=== PATIENT | male | born 1950 | race Caucasian/White ===

== ENCOUNTER → 2019-11-10 09:33 | Outpatient (BNVA) | payer OTHER, SELFPAY | PROVIDERS: Family Provider Internal Medicine; PCP Internal Medicine; Referring Provider Internal Medicine; Visit Provider Podiatrist Foot & Ankle Surgery | DX: M25.572 Pain in left ankle and joints of left foot (principal); M25.571 Pain in right ankle and joints of right foot; M79.672 Pain in left foot; M79.671 Pain in right foot; M21.42 Flat foot [pes planus] (acquired), left foot; M21.41 Flat foot [pes planus] (acquired), right foot | CPT/HCPCS: 73600; 73630 ==

== ENCOUNTER → 2020-03-20 10:15 | Outpatient (BNVA) | payer OTHER, SELFPAY | PROVIDERS: Family Provider Internal Medicine; PCP Internal Medicine; Visit Provider Nurse Practitioner Family | DX: R35.0 Frequency of micturition (principal); R39.15 Urgency of urination | CPT/HCPCS: 81003 ==

== ENCOUNTER → 2020-09-21 09:10 | Outpatient (BNVA) | payer OTHER, SELFPAY | PROVIDERS: Family Provider Internal Medicine; PCP Internal Medicine; Visit Provider Urology | DX: R39.15 Urgency of urination (principal); R35.8 Other polyuria | CPT/HCPCS: 81003 ==

== ENCOUNTER → 2022-03-06 08:24 | Outpatient (BNVA) | payer OTHER, SELFPAY | PROVIDERS: Family Provider Internal Medicine; PCP Internal Medicine; Visit Provider Podiatrist Foot & Ankle Surgery | DX: E11.8 Type 2 diabetes mellitus with unspecified complications (principal); M76.821 Posterior tibial tendinitis, right leg; M76.822 Posterior tibial tendinitis, left leg; E11.42 Type 2 diabetes mellitus with diabetic polyneuropathy; M21.41 Flat foot [pes planus] (acquired), right foot; M21.42 Flat foot [pes planus] (acquired), left foot; M25.371 Other instability, right ankle | CPT/HCPCS: 73610; 99214 ==

== ENCOUNTER → 2022-09-18 08:17 | Outpatient (BNVA) | payer OTHER, SELFPAY | PROVIDERS: Family Provider Internal Medicine; PCP Internal Medicine; Visit Provider Podiatrist Foot & Ankle Surgery | DX: E11.8 Type 2 diabetes mellitus with unspecified complications (principal); M76.821 Posterior tibial tendinitis, right leg; M76.822 Posterior tibial tendinitis, left leg; E11.42 Type 2 diabetes mellitus with diabetic polyneuropathy; M19.071 Primary osteoarthritis, right ankle and foot; M21.41 Flat foot [pes planus] (acquired), right foot; M21.42 Flat foot [pes planus] (acquired), left foot; M25.371 Other instability, right ankle; Z79.84 Long term (current) use of oral hypoglycemic drugs | CPT/HCPCS: 99214 ==

== ENCOUNTER 2023-07-01 09:29 | Outpatient (CLI) | payer OTHER, SELFPAY ==
--- NOTE | 2023-07-01 09:45 | US_ITS ---
WS: [id number] ULTRASOUND THYROID TECHNIQUE: Ultrasound of the thyroid. CLINICAL INFORMATION: LOW TSH COMPARISON: None. FINDINGS: Thyroid: Right and left thyroid lobes are normal in size and echotexture. No thyroid nodules are pres ent. Right thyroid lobe: 3.5 cm x 1.9 cm x 1.9 cm Left thyroid lobe: 4.7 cm x 1.8 cm x 1.7 cm. Isthmus: 0.4 mm. Cervical lymphadenopathy: None. IMPRESSION: Normal thyroid ultrasound examination.
== END 2023-07-01 09:30 | disposition home or self-care (01) ==
LOC: RAD 09:30
PROVIDERS: PCP Family Medicine; Visit Provider Family Medicine
DX: R94.6 Abnormal results of thyroid function studies (principal)
CPT/HCPCS: 76536

== ENCOUNTER 2023-08-06 11:26 | Outpatient (CLI) | payer OTHER, SELFPAY ==
--- NOTE | 2023-08-06 11:39 | XR_ITS ---
WS: [id number] Right ankle, 3 views, 08/06/2023 Clinical Data: R ANKLE PAIN Comparison: Right ankle, 03/06/2022 Findings: No fractures or dislocations are seen. The ankle mortise is normal. The talus and calcaneus are unrem arkable. No soft tissue swelling over the medial or lateral malleolus is seen. There are chronic anterior subcutaneous calcifications unchanged. XR/XR ankle RT min 3V* [id number] Impression: Negative right ankle.
== END 2023-08-06 11:27 | disposition home or self-care (01) ==
LOC: RAD 11:32
PROVIDERS: PCP Family Medicine; Visit Provider Nurse Practitioner Family
DX: M25.571 Pain in right ankle and joints of right foot (principal); L94.2 Calcinosis cutis
CPT/HCPCS: 73610

== ENCOUNTER 2023-08-27 12:46 | Observation (INO) | payer OTHER, SELFPAY ==
[2023-08-27] VITALS (10 sets, daily range): BP systolic 96–135; BP diastolic 64–87; PULSE 56–76; RESP 16–18; TEMP 36.6–36.8; O2SAT 81–99
--- NOTE | 2023-08-27 12:51 | W.ED.GENADLT ---
HPI - General Adult General: Chief complaint: Dizziness Stated complaint: low sugar Time Seen by Provider: 08/27/23 12:46 Source: patient and EMS Mode of arrival: EMS Limitations: no limitations History of Present Illness: 73-year-old male with a history of diabetes on metformin he states that he had not eaten this morning late for his appointment is feeling slightly weeks he checked his glucose and was in the 50s. Glucose here is 41 he is awake alert talking states this has happened before when he has not eaten. Denies any vomiting or diarrhea Associated symptoms: Deny chest pain, dyspnea, headache(s), nausea, rash or vomiting Review of Systems Const: Reports: fatigue; Denies: fever(s), chills, body aches or change in appetite ENMT: Denies: throat pain or dental pain Card: Denies: chest pain Resp: Denies: dyspnea GI: Denies: abdominal pain, nausea, vomiting or diarrhea Musc: Denies: neck pain or back pain Skin/Breast: Denies: rash Neuro: Denies: headache(s) PFSH ED PFSH: Medical History Urgency of urination Diabetes Neuropathy Family History Mother , at age 92 No problems noted. Social History Smoking and tobacco/nicotine status: former use of tobacco/nicotine Alcohol intake: never Substance/Drug Use: never Marital status: Current occupational status: retired Physical Exam Const: COMMON NORMALS: no acute distress, patient oriented x3 and healthy appearing HENMT: COMMON NORMALS: normocephalic and atraumatic HEAD & SCALP: normocephalic and atraumatic Eye: COMMON NORMALS: Equal, round and reactive pupils present and EOMs intact bilaterally PUPIL: Yes Equal, round and reactive pupils present Neck/C-Spine: COMMON NORMALS: full ROM and supple Chest: COMMONS NORMALS: normal inspection of the chest Resp: COMMON NORMALS: normal respiratory effort, No retractions, No use of accessory muscles and clear to auscultation bilaterally AUSCULTATION: clear to auscultation bilaterally Cardio: COMMON NORMALS: regular rate, regular rhythm and No murmurs present (Cardio) RATE: regular rate RHYTHM: regular rhythm Extremity: COMMON NORMALS: normal to inspection and full ROM Neuro: COMMON NORMALS: patient oriented x3, moves all extremities and no focal motor deficits Psych: COMMON NORMALS: mental status grossly normal, Normal thought process present and cooperative THOUGHT PROCESS: Normal thought process present Skin: COMMON NORMALS: no rashes or lesions noted and no wounds GENERAL SKIN EXAM: no rashes or lesions noted Course Vital Signs: Vital signs: Vital Signs Temperature 98 F 08/27/23 12:52 Pulse Rate 57 L 08/27/23 14:59 Respiratory Rate 16 08/27/23 14:59 Blood Pressure 113/71 08/27/23 14:59 Pulse Oximetry 98 08/27/23 14:59 Oxygen Delivery Me thod Room Air 08/27/23 14:59 MDM - General Adult Medical Decision Making Patient presents here with hypoglycemia he has been given D10 multiple boluses along with he has eaten here he continues to trend down his last glucose was 60 I am start him on a D10 drip now spoke to the hospitalist will admit the ICU. Medical Records I reviewed the patient's medical records. Lab Data I reviewed the patient's lab results. 08/27/23 12:40 08/27/23 12:40 Laboratory Results WBC 5.97 10^3/uL (3.29-11.43) 08/27/23 12:40 RBC 3.97 10^6/uL (3.85-5.65) 08/27/23 12:40 Hgb 10.70 g/dL (11.27-16.99) L 08/27/23 12:40 Hct 33.6 % (37-53) L 08/27/23 12:40 MCV 84.6 fl (82-101) 08/27/23 12:40 MCH 27.0 pg (27-33) 08/27/23 12:40 MCHC 31.8 g/dL (30-55) 08/27/23 12:40 RDW 17.0 % (12.1-15.1) H 08/27/23 12:40 Plt Count 308 10^3/cmm (157-399) 08/27/23 12:40 MPV 8.6 fL (7.4-10.4) 08/27/23 12:40 Neut % (Auto) 42.3 % 08/27/23 12:40 Lymph % (Auto) 44.2 % 08/27/23 12:40 Nicholas % (Auto) 9.4 % 08/27/23 12:40 Eos % (Auto) 3.2 % 08/27/23 12:40 Baso % (Auto) 0.7 % 08/27/23 12:40 Neut # (Auto) 2.53 10^3/uL (1.8-7.7) 08/27/23 12:40 Lymph # (Auto) 2.6 10^3/uL (0.8-4.8) 08/27/23 12:40 Nicholas # (Auto) 0.6 10^3/uL (0.2-0.9) 08/27/23 12:40 Eos # (Auto) 0.2 10^3/uL (0.0-0.8) 08/27/23 12:40 Baso # (Auto) 0.0 10^3/uL (0.0-0.1) 08/27/23 12:40 Nucleated RBC % (auto) 0 % 08/27/23 12:40 Nucleated RBCs # 0.0 /100WBC 08/27/23 12:40 Sodium 136 mmol/L (136-145) 08/27/23 12:40 Potassium 5.6 mmol/L (3.5-5.1) H 08/27/23 12:40 Chloride 103 mmol/L (98-107) 08/27/23 12:40 Carbon Dioxide 22 mmol/L (22-29) 08/27/23 12:40 Anion Gap 16.6 (5-19) 08/27/23 12:40 BUN 27 mg/dL (8-23) H 08/27/23 12:40 Creatinine 1.5 mg/dL (0.7-1.2) H 08/27/23 12:40 GFR Calculation Not Reportable 08/27/23 12:40 Glucose 34 mg/dL (65-115) L* 08/27/23 12:40 POC Glucose 60 mg/dL (70-110) L 08/27/23 15:51 Calculated Osmolality 284 mOsm/kg (285-295) L 08/27/23 12:40 Calcium 10.6 mg/dL (8.5-10.5) H 08/27/23 12:40 Total Bilirubin 0.2 mg/dL (0.15-1.2) 08/27/23 12:40 AST 18 U/L (0-40) 08/27/23 12:40 ALT 11 U/L (0-41) 08/27/23 12:40 Alkaline Phosphatase 61 U/L (40-130) 08/27/23 12:40 Total Protein 7.3 g/dL (6.6-8.7) 08/27/23 12:40 Albumin 4.6 g/dL (3.5-5.2) 08/27/23 12:40 Globulin 2.7 g/dL (1.3-4.6) 08/27/23 12:40 No radiology studies performed this visit Discharge Plan Discharge Patient Disposition: Admitted As Inpatient Clinical Impression: Hypoglycemia Condition: Stable Coding Level of Care Code ED Information Technology Advisor for Constanza Lucia
[2023-08-27 12:53] LABS: Glucose Point of Care 41 mg/dL (70-110)
[2023-08-27] MEDS: dextrose 10% 250 ML 1000 ML IV (12:59)
--- NOTE | 2023-08-27 13:02 | PC.PHAR ---
Addendum entered by Rosa Soliman 08/27/23 14:11: [facility]:10PM Original Note: [facility] 08/27/23 1PM
[2023-08-27 13:05] LABS: Basophils % 0.7 %; Eosinophils # 0.2 10^3/uL (0.0-0.8); Eosinophils % 3.2 %; Hematocrit 33.6 % (37-53); Lymphocytes # 2.6 10^3/uL (0.8-4.8); Lymphocytes % 44.2 %; Mean Corpuscular HGB Conc 31.8 g/dL (30-55); Mean Corpuscular Volume 84.6 fl (82-101); Mean Platelet Volume 8.6 fL (7.4-10.4); Monocytes # 0.6 10^3/uL (0.2-0.9); Monocytes % 9.4 %; Neutrophils # 2.53 10^3/uL (1.8-7.7); Neutrophils % 42.3 %; Nucleated Red Blood Cells % 0 %; Platelet Count 308 10^3/cmm (157-399); Red Blood Count 3.97 10^6/uL (3.85-5.65); White Blood Count 5.97 10^3/uL (3.29-11.43)
[2023-08-27 13:17] LABS: Alanine Aminotransferase 11 U/L (0-41); Albumin Level 4.6 g/dL (3.5-5.2); Alkaline Phosphatase 61 U/L (40-130); Anion Gap 16.6 (5-19); Aspartate Amino Transferase 18 U/L (0-40); Blood Urea Nitrogen 27 mg/dL (8-23); Calcium 10.6 mg/dL (8.5-10.5); Carbon Dioxide 22 mmol/L (22-29); Chloride 103 mmol/L (98-107); Creatinine Clr Calc Pharmacy 40.2492; Globulin 2.7 g/dL (1.3-4.6); Osmolality Calculated 284 mOsm/kg (285-295); Potassium 5.6 mmol/L (3.5-5.1); Sodium 136 mmol/L (136-145); Total Bilirubin 0.2 mg/dL (0.15-1.2); Total Protein 7.3 g/dL (6.6-8.7)
[2023-08-27 13:20] LABS: Glucose 34 mg/dL (65-115)
[2023-08-27 13:36] LABS: Glucose Point of Care 182 mg/dL (70-110)
[2023-08-27 13:57] LABS: Glucose Point of Care 104 mg/dL (70-110)
[2023-08-27] MEDS: dextrose 10% 250 ML 999 ML IV (14:25)
[2023-08-27 14:27] LABS: Glucose Point of Care 75 mg/dL (70-110)
[2023-08-27 15:07] LABS: Glucose Point of Care 135 mg/dL (70-110)
[2023-08-27 15:54] LABS: Glucose Point of Care 60 mg/dL (70-110)
[2023-08-27] MEDS: dextrose 10% 1,000 ML 75 ML IV (16:00)
--- NOTE | 2023-08-27 16:32 | P.HP_ITS ---
Providers/Chief Complaint 2 Primary Care Provider: Dea Schuler MD Chief Complaint: low sugar History of Present Illness Mehdi Muir is a 73 year old male with past medical history of type 2 diabetes on metformin 1000 mg twice a day, neuropathy, GERD was brought in by EMS for blood sugar of 30. As per the patient he and his were planning to go to the restaurant to eat but while in the parking lot he started feeling really weak, unable to get up, unable to hold things and was feeling funny . He went to [facility] from where he was transported by EMS to [facility]. He denies any history of fever, cold, cough, chest pain/discomfort, nausea, vomiting, urinary or bladder complaints. He has a history of similar complaint 2 weeks ago with similar symptoms, where he was given IV dextrose by the EMS and he recovered. He did not see his PCP in the last 2 weeks. He has been on self diet for the last few months and has lost 50 pounds. He eats only twice a day, first meal of the day is around 1-2 PM. This morning, he was in his usual health, took metformin and left for the restaurant at noon time. He endorses he has been taking metformin for the last 4 years and never had this complaints before. On arrival in ER he was found to have blood sugar of 30, he received 1 D10 which improved sugars but again an hour later repeat blood sugars were 60. He received second D10 and sugars improved. He also had to ham sandwiches and 2 containers of juice. Serum creatinine is 1.5 Potassium 5.6 Review of Systems 2 General: Reports: 10 or more systems reviewed and unremarkable except in HPI and below Medications/Allergies Home Medications Medication Instructions Recorded Confirmed Last Taken Type cyclobenzaprine 10 mg tablet 10 mg PO TID 11/10/19 09/18/22 Unknown History meloxicam 7.5 mg tablet 7.5 mg PO DAILY 11/10/19 09/18/22 Unknown History metformin 1,000 mg tablet 1,000 mg PO BID 11/10/19 09/18/22 Unknown History omeprazole 10 mg capsule,delayed 10 mg PO DAILY 11/10/19 09/18/22 Unknown History release pregabalin 25 mg capsule 25 mg PO DAILY 11/10/19 09/18/22 Unknown History Articulating Spectrum AFO #1 ea 03/06/22 08/27/23 Unknown Rx Articulating Spectrum AFO to the #1 ea 09/18/22 08/27/23 Unknown Rx left Allergies Allergy/AdvReac Type Severity Reaction Status Date / Time No Known Allergies Allergy Verified 08/27/23 12:57 PFSH Acute 2 PFSH: Medical History Urgency of urination Diabetes Neuropathy Family History Mother , at age 92 No problems noted. Social History Smoking and tobacco/nicotine status: former use of tobacco/nicotine Alcohol intake: never Substance/Drug Use: never Marital status: Current occupational status: retired Vitals/I&O/Wt Last Vital Signs Temp 98 F 08/27/23 12:52 Pulse 57 L 08/27/23 14:59 Resp 16 08/27/23 14:59 BP 113/71 08/27/23 14:59 Pulse Ox 98 08/27/23 14:59 O2 Del Method Room Air 08/27/23 14:59 08/27/23 08/27/23 08/27/23 06:59 14:59 22:59 Intake Total 250 / 250 250 / 500 Balance 250 / 250 250 / 500 Weight last 48 hrs Weight 68.039 kg Physical Exam 2 Narrative: He is alert awake oriented x 3, not in acute distress Chest clear to auscultation bilaterally Cardiovascular normal heart sounds no murmurs Abdomen soft nontender nondistended normal bowel sounds Extremities no edema noted bilateral lower extremities Neurological no motor or sensory deficits noted. Data 08/27/23 12:40 08/27/23 12:40 A&P Assessment and plan (1) Hypoglycemia: (2) Acute renal failure: (3) Hyperkalemia: Plan 73 year old male with past medical history of type 2 diabetes on metformin 1000 mg twice a day, neuropathy, GERD was brought in by EMS for blood sugar of 30. As per the patient he and his were planning to go to the restaurant to eat but while in the parking lot he started feeling really weak, unable to get up, unable to hold things and was feeling funny and was found to have blood sugar of 30 and 60 on 2 occasions, nonresponsive to D10. Also found to have serum creatinine 1.5 and potassium 5.6 Hypoglycemia-etiology unknown in combination with dehydration, does not seem to be medication induced Admit to ICU for observation Will continue D10 at 75 cc per hour Monitor fingersticks every 2 hours Check chest x-ray,UA, HbA1c, TSH, serum insulin levels, C-peptide Regular diet neurochecks and seizure precautions. Hyperkalemia-will check twelve-lead EKG He does not complain of any ongoing chest pain/discomfort DVT prophylaxis with subcutaneous Lovenox GI prophylaxis continue home dose of omeprazole. He is full code for now Attestations 2 Medical Necessity Statement*: He needs hospitalization not more than 2 midnights for management of persistent hypoglycemia, nonresponsive to D10. Time Spent in Patient Care: 40 minutes Coding Level of Care Code Acute Code for Chg Fwd Diagnoses Hypoglycemia E16.2 Acute renal failure N17.9 Hyperkalemia E87.5 Time Spent (min) 40
--- NOTE | 2023-08-27 16:52 | XRR_ITS ---
PROCEDURE INFORMATION: Exam: XR Chest Exam date and time: 08/27/2023 5:06 PM Age: 73 years old Clinical indication: Shortness of breath; Additional info: R/O infection TECHNIQUE: Imaging protocol: Radiologic exam of the chest. Views: 1 view. COMPARISON: No relevant prior studies available. FINDINGS: Lungs: Unremarkable. No consolidation or mass. Pleural spaces: Unremarkable. No pleural effusion. No pneumothorax. Heart/Mediastinum: Unremarkable. No cardiomegaly. Bones/joints: Unremarkable. XR/XR chest 1V portable [id number] IMPRESSION: No acute findings.
--- NOTE | 2023-08-27 16:59 | ECG_ITS ---
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 Measurements Intervals [place] Rate: 54 P: 91 WV: 195 QRS: -62 QRSD: 96 T: 36 QT: 372 QTc: 353 Interpretive Statements SINUS BRADYCARDIA POSSIBLE RIGHT VENTRICULAR CONDUCTION DELAY [RSR (QR) IN V1/V2] LEFT ANTERIOR FASCICULAR BLOCK [QRS AXIS <= -45, QR IN I, RS IN II] No previous ECG available for comparison Electronically Signed On 08-28-2023 0:04:11 CDT by Tremayne Awan M.D. [id number]
[2023-08-27 17:13] LABS: Glucose Point of Care 71 mg/dL (70-110)
[2023-08-27] MEDS: enoxaparin 40 mg/0.4 mL Syringe SUBCUT (17:51)
[2023-08-27 20:30] LABS: Glucose Point of Care 64 mg/dL (70-110)
[2023-08-27 21:47] LABS: Add Urine Microscopic? NO; Charge for UA Resulting for Rev
[2023-08-27 21:55] LABS: Bilirubin Urine Neg (Negative); Blood Urine Neg (Negative); Glucose Urine UA Norm (Normal); Ketones Urine Negative (Negative); Leukocyte Esterase Urine Negative (Negative); Nitrate Urine Negative (Negative); Protein Urine Neg (Negative); Urine Appearance Clear (CLEAR); Urine Color Yellow (Yellow); Urobilinogen Urine Neg (Negative); pH Urine 7 (5-7)
[2023-08-27 22:02] LABS: Glucose Point of Care 71 mg/dL (70-110)
[2023-08-27 23:56] LABS: Glucose Point of Care 82 mg/dL (70-110)
[2023-08-28] VITALS (15 sets, daily range): BP systolic 98–124; BP diastolic 50–79; PULSE 52–95; RESP 12–25; TEMP 36.6; O2SAT 95–98
[2023-08-28 00:08] LABS: Glucose Point of Care 65 mg/dL (70-110)
[2023-08-28 01:51] LABS: Glucose Point of Care 106 mg/dL (70-110)
[2023-08-28 03:50] LABS: Glucose Point of Care 139 mg/dL (70-110)
[2023-08-28] MEDS: dextrose 10% 1,000 ML 75 ML IV (05:07)
[2023-08-28 05:40] LABS: Basophils # 0.1 10^3/uL (0.0-0.1); Basophils % 1.3 %; Eosinophils # 0.3 10^3/uL (0.0-0.8); Eosinophils % 5.4 %; Hematocrit 38.3 % (37-53); Lymphocytes # 3.2 10^3/uL (0.8-4.8); Mean Corpuscular HGB Conc 29.5 g/dL (30-55); Mean Corpuscular Hemoglobin 26.5 pg (27-33); Mean Corpuscular Volume 89.9 fl (82-101); Mean Platelet Volume 8.7 fL (7.4-10.4); Monocytes # 0.5 10^3/uL (0.2-0.9); Monocytes % 8.6 %; Neutrophils # 1.53 10^3/uL (1.8-7.7); Neutrophils % 27.5 %; Nucleated Red Blood Cells % 0 %; Platelet Count 296 10^3/cmm (157-399); Red Blood Count 4.26 10^6/uL (3.85-5.65); Red Cell Distribution Width 17.4 % (12.1-15.1); White Blood Count 5.56 10^3/uL (3.29-11.43)
[2023-08-28 05:49] LABS: Estmated Average Glucose 94; Hemoglobin A1C 4.9 % (4.0-6.0)
[2023-08-28 05:56] LABS: Glucose Point of Care 144 mg/dL (70-110)
[2023-08-28 06:12] LABS: Anion Gap 15.6 (5-19); Blood Urea Nitrogen 21 mg/dL (8-23); Calcium 10.3 mg/dL (8.5-10.5); Carbon Dioxide 24 mmol/L (22-29); Chloride 103 mmol/L (98-107); Glucose 102 mg/dL (65-115); Osmolality Calculated 287 mOsm/kg (285-295); Potassium 5.6 mmol/L (3.5-5.1); Sodium 137 mmol/L (136-145); Thyroid Stimulating Hormone 1.19 uIU/mL (0.27-4.20)
[2023-08-28 07:47] LABS: Glucose Point of Care 160 mg/dL (70-110)
[2023-08-28] MEDS: octreotide 100 mcg/mL SDV 75 MCG SUBCUT (09:09)
--- NOTE | 2023-08-28 09:27 | PC.NURSE ---
up in room doctor here aware of status breakfast served at this time ... no c/o pain noted
[2023-08-28 09:50] LABS: Glucose Point of Care 181 mg/dL (70-110)
[2023-08-28 11:58] LABS: Glucose Point of Care 178 mg/dL (70-110)
--- NOTE | 2023-08-28 12:19 | PM.DCS ---
Discharge Providers Date of Admission: 08/27/23 18:32 Date of Discharge: August 28, 2023 Attending Provider at Admission: Shelley Borja MD Attending Provider at Discharge: Catrachito Fuchs MD Primary Care Provider: Dea Schuler MD Diagnoses at Discharge Discharge Diagnosis (1) Hypoglycemia: Status: Acute (2) Acute renal failure: Status: Acute (3) Hyperkalemia: Status: Acute Reason for Visit Reason for Visit: low sugar Hospital Course Hospital Course Mehdi Muir is a 73 year old male with past medical history of type 2 diabetes on metformin 1000 mg twice a day, neuropathy, GERD was brought in by EMS for blood sugar of 30. As per the patient he and his were planning to go to the restaurant to eat but while in the parking lot he started feeling really weak, unable to get up, unable to hold things and was feeling funny . He went to [facility] from where he was transported by EMS to [facility]. He denies any history of fever, cold, cough, chest pain/discomfort, nausea, vomiting, urinary or bladder complaints. He has a history of similar complaint 2 weeks ago with similar symptoms, where he was given IV dextrose by the EMS and he recovered. He did not see his PCP in the last 2 weeks. He has been on self diet for the last few months and has lost 50 pounds. He eats only twice a day, first meal of the day is around 1-2 PM. This morning, he was in his usual health, took metformin and left for the restaurant at noon time. He endorses he has been taking metformin for the last 4 years and never had this complaints before. On arrival in ER he was found to have blood sugar of 30, he received 1 D10 which improved sugars but again an hour later repeat blood sugars were 60. He received second D10 and sugars improved. He also had to ham sandwiches and 2 containers of juice. Serum creatinine is 1.5 Potassium 5.6 Patient presented to [facility] due to hypoglycemia, likely due to the effect of sulfonylurea, he admits taking glipizide at home, initially was managed with D10 however continued to have hypoglycemia was given 1 dose of octreotide, blood sugars improved, weaned off D10 drip, blood sugars monitored, alert oriented x 3, following all commands, no recurrent hypoglycemic episodes, during his hospitalization. On discharge he should discontinue glipizide, as his hemoglobin A1c is 4.9, in terms of metformin I decreased his dose of 500 mg daily, for its cardiovascular benefit. I advised him that if he continues to have episodes of hypoglycemia he should discontinue metformin completely. In terms of his diet, I discussed with him about having a more well-balanced diet, havING small multiple meals throughout the day, increasing the protein in his diet, he voiced understanding, all questions answered. Patient was advised if he has any recurrent hypoglycemic episodes to come to the emergency room. Physical Exam Const: COMMON NORMALS: no acute distress and patient oriented x3 Resp: COMMON NORMALS: normal respiratory effort, No retractions, No use of accessory muscles and clear to auscultation bilaterally AUSCULTATION: clear to auscultation bilaterally Cardio: COMMON NORMALS: regular rate, regular rhythm, S1 normal heart sound present and S2 normal heart sound present RATE: regular rate RHYTHM: regular rhythm HEART SOUNDS: S1 normal heart sound present and S2 normal heart sound present GI: COMMON NORMALS: Normal to inspection, nondistended, normoactive bowel sounds present and non-tender Extremity: COMMON NORMALS: no pedal edema Neuro: COMMON NORMALS: patient oriented x3 Psych: COMMON NORMALS: mental status grossly normal Discharge Data Studies Completed and Pending Completed Studies During Hospitalization Category Date Time Status XR chest 1V portable [id number] Stat Exams 08/27/23 16:52 Completed Pending at discharge Category Date Time Status C-Peptide Stat Lab 08/28/23 04:13 Received Insulin ( Reference Lab Test) Routine Lab 08/28/23 04:13 Received Radiology Impressions Chest X-Ray 08/27/23 16:52 IMPRESSION: No acute findings. Laboratory Results WBC 5.56 10^3/uL (3.29-11.43) 08/28/23 04:13 RBC 4.26 10^6/uL (3.85-5.65) 08/28/23 04:13 Hgb 11.30 g/dL (11.27-16.99) 08/28/23 04:13 Hct 38.3 % (37-53) 08/28/23 04:13 MCV 89.9 fl (82-101) D 08/28/23 04:13 MCH 26.5 pg (27-33) L 08/28/23 04:13 MCHC 29.5 g/dL (30-55) L D 08/28/23 04:13 RDW 17.4 % (12.1-15.1) H 08/28/23 04:13 Plt Count 296 10^3/cmm (157-399) 08/28/23 04:13 MPV 8.7 fL (7.4-10.4) 08/28/23 04:13 Neut % (Auto) 27.5 % 08/28/23 04:13 Lymph % (Auto) 57.0 % 08/28/23 04:13 Bryan % (Auto) 8.6 % 08/28/23 04:13 Eos % (Auto) 5.4 % 08/28/23 04:13 Baso % (Auto) 1.3 % 08/28/23 04:13 Neut # (Auto) 1.53 10^3/uL (1.8-7.7) L 08/28/23 04:13 Lymph # (Auto) 3.2 10^3/uL (0.8-4.8) 08/28/23 04:13 Bryan # (Auto) 0.5 10^3/uL (0.2-0.9) 08/28/23 04:13 Eos # (Auto) 0.3 10^3/uL (0.0-0.8) 08/28/23 04:13 Baso # (Auto) 0.1 10^3/uL (0.0-0.1) 08/28/23 04:13 Nucleated RBC % (auto) 0 % 08/28/23 04:13 Nucleated RBCs # 0.0 /100WBC 08/28/23 04:13 Sodium 137 mmol/L (136-145) 08/28/23 04:13 Potassium 5.6 mmol/L (3.5-5.1) H 08/28/23 04:13 Chloride 103 mmol/L (98-107) 08/28/23 04:13 Carbon Dioxide 24 mmol/L (22-29) 08/28/23 04:13 Anion Gap 15.6 (5-19) 08/28/23 04:13 BUN 21 mg/dL (8-23) 08/28/23 04:13 Creatinine 1.2 mg/dL (0.7-1.2) 08/28/23 04:13 GFR Calculation Not Reportable 08/28/23 04:13 Glucose 102 mg/dL (65-115) 08/28/23 04:13 POC Glucose 178 mg/dL (70-110) H 08/28/23 11:54 Estimat Average Glucose 94 08/28/23 04:13 Hemoglobin A1c 4.9 % (4.0-6.0) 08/28/23 04:13 Calculated Osmolality 287 mOsm/kg (285-295) 08/28/23 04:13 Calcium 10.3 mg/dL (8.5-10.5) 08/28/23 04:13 Total Bilirubin 0.2 mg/dL (0.15-1.2) 08/27/23 12:40 AST 18 U/L (0-40) 08/27/23 12:40 ALT 11 U/L (0-41) 08/27/23 12:40 Alkaline Phosphatase 61 U/L (40-130) 08/27/23 12:40 Total Protein 7.3 g/dL (6.6-8.7) 08/27/23 12:40 Albumin 4.6 g/dL (3.5-5.2) 08/27/23 12:40 Globulin 2.7 g/dL (1.3-4.6) 08/27/23 12:40 TSH 1.19 uIU/mL (0.27-4.20) 08/28/23 04:13 Urine Color Yellow (Yellow) 08/27/23 21:35 Urine Appearance Clear (CLEAR) 08/27/23 21:35 Urine pH 7 (5-7) 08/27/23 21:35 Ur Specific [place] 1.010 (1.005-1.030) 08/27/23 21:35 Urine Protein Neg (Negative) 08/27/23 21:35 Urine Glucose (UA) Norm (Normal) 08/27/23 21:35 Urine Ketones Negative (Negative) 08/27/23 21:35 Urine Blood Neg (Negative) 08/27/23 21:35 Urine Nitrate Negative (Negative) 08/27/23 21:35 Urine Bilirubin Neg (Negative) 08/27/23 21:35 Urine Urobilinogen Neg mg/dL (Negative) 08/27/23 21:35 Ur Leukocyte Esterase Negative (Negative) 08/27/23 21:35 Vitals Last Vital Signs Temp 98 F 08/28/23 08:00 Pulse 55 L 08/28/23 08:00 Resp 15 08/28/23 08:00 BP 104/64 08/28/23 08:00 Pulse Ox 95 08/28/23 08:00 O2 Del Method Room Air 08/27/23 20:11 Discharge Plan Discharge Patient Disposition: Home Condition: Stable Prescriptions: Continued omeprazole 10 mg capsule,delayed release(DR/EC) 10 mg PO DAILY pregabalin 25 mg capsule 25 mg PO DAILY meloxicam 7.5 mg tablet 7.5 mg PO DAILY (DME) Articulating Spectrum AFO See Rx Instructions .Route .MEDSUPPLY Qty: 1 0RF Rx Instructions: As directed by [facility]- HELENE PATIENT (DME) Articulating Spectrum AFO to the left See Rx Instructions .Route .MEDSUPPLY Qty: 1 0RF Rx Instructions: As directed by POP[facility]Grace NARAYAN PATIENT Changed metformin 1,000 mg tablet 500 mg PO DAILY 30 Days Qty: 30 0RF Discharge Orders: Discharge Order (Routine); Ordered 08/28/23 Ordered By: Catrachito Fuchs Referrals: Dea Schuler MD [Primary Care Provider] - Discharge Diet: Diabetic Discharge Activity: Resume usual activity Patient Instructions: Opioid Safety, Pain Management Activity Restrictions/Additional Instructions: -Please stop taking glipizide ? Please decrease metformin to 500 mg once daily, if you continue to have low blood sugars, hypoglycemic episodes stop taking metformin Discharge Attestations Time Spent in Discharge Care*: greater than 30 min Quality Metrics Clinical Quality Measures [ No reported AMI, CVA or VTE this stay] Coding Level of Care Code 29714 Total time (in minutes) for Discharge: 45 Diagnoses Hypoglycemia E16.2 Acute renal failure N17.9 Hyperkalemia E87.5
[2023-08-28 17:32] LABS: Glucose Point of Care 224 mg/dL (70-110)
[2023-08-29 09:10] LABS: Insulin ( Reference Lab Test) 8.5 uIU/mL
== END 2023-08-28 14:00 | disposition home or self-care (01) ==
LOC: ER 17:37 → ICU 19:41 → ER IP 19:43
PROVIDERS: Admitting Provider Internal Medicine; Emergency Provider Emergency Medicine; PCP Family Medicine; Visit Provider Family Medicine
DX: E11.649 Type 2 diabetes mellitus with hypoglycemia without coma (principal); N17.9 Acute kidney failure, unspecified; E87.5 Hyperkalemia; Z79.84 Long term (current) use of oral hypoglycemic drugs; E11.40 Type 2 diabetes mellitus with diabetic neuropathy, unspecified; Z87.891 Personal history of nicotine dependence; E86.0 Dehydration
CPT/HCPCS: 36415; 36416; 71045; 80048; 80053; 81003; 82962; 83036; 83525; 84443; 84681; 85025; 93005; 96360; 96361; 96372; 99285; G0378; J1650; J2354; J7799

== ENCOUNTER → 2023-09-29 10:33 | Outpatient (BNVA) | payer OTHER, SELFPAY | PROVIDERS: PCP Family Medicine; Visit Provider Podiatrist Foot & Ankle Surgery | DX: M76.821 Posterior tibial tendinitis, right leg (principal); M76.822 Posterior tibial tendinitis, left leg; E11.42 Type 2 diabetes mellitus with diabetic polyneuropathy; M21.41 Flat foot [pes planus] (acquired), right foot; M21.42 Flat foot [pes planus] (acquired), left foot; M25.371 Other instability, right ankle; M19.071 Primary osteoarthritis, right ankle and foot; M19.072 Primary osteoarthritis, left ankle and foot; Z79.84 Long term (current) use of oral hypoglycemic drugs | CPT/HCPCS: 99213 ==

== ENCOUNTER → 2023-10-16 09:50 | Outpatient (BNVA) | payer OTHER, SELFPAY | PROVIDERS: PCP Family Medicine; Visit Provider Psychiatry & Neurology Neurology | DX: R20.0 Anesthesia of skin (principal); R20.2 Paresthesia of skin; M79.645 Pain in left finger(s); M79.644 Pain in right finger(s); G56.03 Carpal tunnel syndrome, bilateral upper limbs | CPT/HCPCS: 95861; 95870; 95885; 95911; 95913 ==

== ENCOUNTER 2024-06-02 07:33 | Outpatient (CLI) | payer OTHER, SELFPAY ==
--- NOTE | 2024-06-02 07:40 | MR_ITS ---
WS: [id number] MRI LUMBAR SPINE NONCONTRAST TECHNIQUE: Sagittal T1, T2 and STIR imaging. Axial T1 and T2 imaging. CLINICAL INFORMATION: CHRONIC PAIN SYNDROME COMPARISON: None. FINDINGS: Note the axial imaging best registers with the sagittal STIR imaging. Mild lumbar curve. No acute compression. Slight anterolisthesis L3 on L4 and L4 on L5. Slight retrolisthesis L1 on L2. T12-L1: Tiny LEFT subarticular protrusion. Mild facet arthropathy. Mild LEFT foraminal narrowing. L1-L2: Mild disc bulge with mild central canal stenosis. Narrowing of the RIGHT subarticular recess. Mild facet arthropathy. Mild RIGHT foraminal narrowing. L2-L3: Shallow central protrusion. Mild to moderate central canal stenosis. Impingement RIGHT subarticular recess. Moderate facet arthropathy. Mild RIGHT foraminal narrowing. L3-L4: Central disc bulge with moderate central canal stenosis. Impingement on the subarticular recess bilaterally RIGHT greater than LEFT. Moderate facet arthropathy. RIGHT foraminal protrusion impinges exiting RIGHT L3 nerve root L4- L5: Disc bulging with moderate central canal stenosis and impingement of traversing RIGHT greater than LEFT L5 nerve roots. Mild to moderate RIGHT L4-5 foraminal narrowing. Moderate to advanced arthropathy. L5-S1: Disc osteophyte complex impinges the traversing S1 nerve roots. Mild RIGHT greater than LEFT foraminal narrowing. Moderate facet arthropathy. Visualized pelvic bony structures: Normal. Paravertebral soft tissues: Normal. RIGHT renal cyst. Slightly ectatic infrarenal abdominal aorta measuring 2.6 x 2.4 cm MR/MR lumbar spine wo con* [id number] IMPRESSION:Note the axial imaging best registers with the sagittal STIR imaging . 1. Moderate central canal stenosis L3-L4 and L4-L5 with impingement on the RIG HT L4-5 and RIGHT L3-4 subarticular recess. 2. RIGHT foraminal protrusion L3-L4 impinges the exiting RIGHT L3 nerve root w ith moderate RIGHT foraminal narrowing. 3. Mild to moderate RIGHT L4-5 foraminal narrowing. 4. Disc osteophyte complex L5-S1 slightly impinges the traversing S1 nerve derik ts with mild RIGHT greater than LEFT foraminal narrowing. 5. Mild central canal stenosis L1-L2 and mild to moderate L2-L3 with narrowing of the RIGHT greater than LEFT subarticular recess at these levels. 6. Central disc protrusion T9-10 seen on matching machine operator imaging with mild to moderate c entral canal stenosis. This can be further evaluated with thoracic spine MRI.
== END 2024-06-02 07:34 | disposition home or self-care (01) ==
PROVIDERS: PCP Family Medicine; Visit Provider Anesthesiology
DX: G89.4 Chronic pain syndrome (principal); M48.061 Spinal stenosis, lumbar region without neurogenic claudication; R93.7 Abnormal findings on diagnostic imaging of other parts of musculoskeletal system; M51.26 Other intervertebral disc displacement, lumbar region; M25.78 Osteophyte, vertebrae; M51.24 Other intervertebral disc displacement, thoracic region; M48.04 Spinal stenosis, thoracic region; M43.8X6 Other specified deforming dorsopathies, lumbar region; M47.894 Other spondylosis, thoracic region; M47.896 Other spondylosis, lumbar region; M48.07 Spinal stenosis, lumbosacral region; M47.897 Other spondylosis, lumbosacral region; N28.1 Cyst of kidney, acquired; I77.811 Abdominal aortic ectasia
CPT/HCPCS: 72148

== ENCOUNTER 2024-10-04 11:31 | Inpatient (IN) | payer OTHER, MEDICARE, SELFPAY ==
[2024-10-04] VITALS (68 sets, daily range): BP systolic 100–154; BP diastolic 63–83; PULSE 43–90; RESP 11–26; TEMP 35.3–36.8; O2SAT 91–99
--- NOTE | 2024-10-04 11:34 | ECG_ITS ---
Kliqed Test Date: 2024-10-04 Pat Name: Mehdi Muir Department: Room: Gender: Male Referral Management Liaison: : 1950 Requested By: Rambo Morgan Order Number: [id number] Zainab MD: Cole Kat M.D. Measurements Intervals [place] Rate: 54 P: 73 IA: 201 QRS: -56 QRSD: 110 T: 44 QT: 415 QTc: 393 Interpretive Statements SINUS BRADYCARDIA RIGHT BUNDLE BRANCH BLOCK [120+ ms QRS DURATION, UPRIGHT V1, 40+ ms S IN I/aVL/V4/V5/V6] LEFT ANTERIOR FASCICULAR BLOCK [QRS AXIS <= -45, QR IN I, RS IN II] MINIMAL VOLTAGE CRITERIA FOR LVH, CONSIDER NORMAL VARIANT [MEETS CRITERIA IN ONE OF: R(aVL), S(V1), R(V5), R(V5/V6)+S(V1)] POSSIBLE SEPTAL MYOCARDIAL INFARCTION , OF INDETERMINATE AGE [30 ms Q WAVE IN V1/V2] INTERPRETATION BASED ON A DEFAULT AGE OF 40 YEARS Compared to ECG 08/27/2023 17:13:38 Right bundle-branch block now present Myocardial infarct finding now present Electronically Signed On 10-04-2024 16:58:46 CDT by Coel Kat M.D. [email or web address] [id number]
--- NOTE | 2024-10-04 11:34 | CT_ITS ---
WS: [id number] CT HEAD NONCONTRAST HISTORY: Symptoms of acute stroke TECHNIQUE: Contiguous axial imaging performed through the brain. Bone and soft tissue windows. Sagittal and coronal reformats reviewed. All CT scans at [facility] use at least one of these dose optimization techniques: automated exposure control; mA and/or kV adjustment per patient size (includes targeted exams where dose is matched to clinical indication); or iterative reconstruction. DLP: 1057.17 mGy COMPARISON: None available. No acute intracranial hemorrhage, midline shift or mass effect. Mild symmetric atrophy and mild small vessel changes. Mild bilateral cerebral atrophy. No lacunar infarcts. Ventricles: Scattered calcifications in the intracranial carotid arteries and distal RIGHT vertebral artery. No increased density in the cerebral arteries. No inferior displacement of the cerebellar tonsils. Paranasal sinuses: As visualized are clear. Mastoid air cells: Well pneumatized. Calvarium and scalp: Skull is intact with no soft tissue edema or swelling. CT/CT head thrombolytic 10284 IMPRESSION: 1. No acute intracranial hemorrhage or edema. 2. Mild cerebral and cerebellar atrophy and small vessel disease. Notified Rambo Naranjo DO at 10/04/2024 11:47 AM.
--- NOTE | 2024-10-04 11:41 | W.ED.DIZZY ---
HPI - Dizziness General: Chief Complaint: Dizziness Stated Complaint: Dizzy, Rapid Resp Time Seen by Provider: 10/04/24 11:33 History of Present Illness: HPI Narrative: 74-year-old male presents emergency room after rapid onset of dizziness feeling weak, mildly diaphoretic denies any chest pain. He had a near syncopal episode he was at rest in the podiatry clinic waiting area when this happened. He is resolved for the most part he is awake and alert his initial evaluation his NIH is 0 he denies any chest pain he still is a bit diaphoretic but he feels like that is improving as well. Patient is diabetic there is no known history of coronary artery disease Associated symptoms: Denies chest pain or chills Related Data Home Medications ?Medication ?Instructions ?Recorded ?Confirmed meloxicam 7.5 mg tablet 7.5 mg PO DAILY 11/10/19 10/04/24 albuterol sulfate 90 mcg/actuation 2 puff inhalation QID PRN copd 10/04/24 10/04/24 aerosol inhaler fluticasone propionate 50 1 spray intranasal DAILY PRN 10/04/24 10/04/24 mcg/actuation nasal allergies spray,suspension glipizide 5 mg tablet 5 mg PO BID 10/04/24 10/04/24 ipratropium 0.5 mg-albuterol 3 mg 3 ml inhalation QID PRN copd 10/04/24 10/04/24 (2.5 mg base)/3 mL nebulization soln lisinopril 10 1 tab PO DAILY 10/04/24 10/04/24 mg-hydrochlorothiazide 12.5 mg tablet omeprazole 20 mg capsule,delayed 20 mg PO BID 10/04/24 10/04/24 release pravastatin 40 mg tablet 40 mg PO QPM 10/04/24 10/04/24 pregabalin 150 mg capsule 150 mg PO BID 10/04/24 10/04/24 Previous Rx's ?Medication ?Instructions ?Recorded Articulating Spectrum AFO #1 ea 03/06/22 Articulating Spectrum AFO to the #1 ea 09/18/22 left Diabetic shoes #2 ea 09/29/23 Allergies Allergy/AdvReac Type Severity Reaction Status Date / Time No Known Allergies Allergy Verified 10/16/23 10:18 Review of Systems Const: Denies: fever(s) or chills Card: Denies: chest pain Resp: Denies: dyspnea GI: Denies: abdominal pain : Denies: dysuria, urinary frequency or urinary urgency Musc: Denies: neck pain or back pain Skin/Breast: Denies: rash PFSH ED PFSH: Medical History Urgency of urination Diabetes Neuropathy Family History Mother , at age 92 No problems noted. Social History Smoking and tobacco/nicotine status: former use of tobacco/nicotine Alcohol intake: never Substance/Drug Use: never Marital status: Current occupational status: retired Physical Exam Const: GENERAL APPEARANCE: cooperative ORIENTATION/CONSCIOUSNESS: Yes awake, Yes oriented to person, Yes oriented to place and Yes oriented to time HENMT: COMMON NORMALS: normocephalic, atraumatic and hearing grossly normal bilaterally HEAD & SCALP: normocephalic and atraumatic Resp: COMMON NORMALS: normal respiratory effort, No retractions, No use of accessory muscles and clear to auscultation bilaterally AUSCULTATION: clear to auscultation bilaterally Cardio: COMMON NORMALS: regular rate, regular rhythm and No murmurs present (Cardio) RATE: regular rate RHYTHM: regular rhythm GI: COMMON NORMALS: Soft to palpation and No hepatosplenomegaly present AUSCULTATION: Yes normoactive bowel sounds PALPATION: Yes Soft to palpation, No Tenderness to palpation present (GI), No Guarding due to palpation present (GI) and Yes No hepatosplenomegaly present Extremity: COMMON NORMALS: normal to inspection, capillary refill normal, no clubbing, cyanosis or edema, no calf tenderness and no pedal edema Neuro: SENSORIUM/ORIENTATION: Yes oriented to person, Yes oriented to place and Yes oriented to time Skin: COMMON NORMALS: no rashes or lesions noted GENERAL SKIN EXAM: no rashes or lesions noted Course Vital Signs: Vital signs: Vital Signs Temperature 98.9 F 10/05/24 15:32 Pulse Rate 67 10/05/24 15:32 Respiratory Rate 18 10/05/24 15:32 Blood Pressure 132/85 10/05/24 15:32 Pulse Oximetry 95 10/05/24 15:32 Oxygen Delivery Me thod Room Air 10/05/24 12:00 MDM - Dizziness Medical Decision Making While we are completing workup patient had a nonsustained run of V. tach approximately 24 beats he became lightheaded and dizzy with this it was as self-limiting. After this he was started on amiodarone with a bolus and drip. Discussed with hospitalist will admit consult cardiology. Medical Records I reviewed the patient's medical records. Lab Data I reviewed the patient's lab results. 10/05/24 00:20 10/05/24 00:[address] 10/04/24 11:34 IMPRESSION: 1. No acute intracranial hemorrhage or edema. 2. Mild cerebral and cerebellar atrophy and small vessel disease. Notified Rambo Naranjo DO at 10/04/2024 11:47 AM. Chest X-Ray 10/04/24 12:25 IMPRESSION: 1. No acute pulmonary process. 2. Mild bibasilar streaky opacities, possibly atelectasis or scarring. Laboratory Results WBC 7.92 10^3/uL (3.29-11.43) 10/04/24 11:51 RBC 4.10 10^6/uL (3.85-5.65) 10/04/24 11:51 Hgb 11.00 g/dL (11.27-16.99) L 10/04/24 11:51 Hct 35.3 % (37-53) L 10/04/24 11:51 MCV 86.1 fl (82-101) 10/04/24 11:51 MCH 26.8 pg (27-33) L 10/04/24 11:51 MCHC 31.2 g/dL (30-55) 10/04/24 11:51 RDW 15.7 % (12.1-15.1) H 10/04/24 11:51 Plt Count 382 10^3/cmm (157-399) 10/04/24 11:51 MPV 8.2 fL (7.4-10.4) 10/04/24 11:51 Neut % (Auto) 41.6 % 10/04/24 11:51 Lymph % (Auto) 45.5 % 10/04/24 11:51 Steele % (Auto) 8.2 % 10/04/24 11:51 Eos % (Auto) 3.4 % 10/04/24 11:51 Baso % (Auto) 0.9 % 10/04/24 11:51 Neut # (Auto) 3.30 10^3/uL (1.8-7.7) 10/04/24 11:51 Lymph # (Auto) 3.6 10^3/uL (0.8-4.8) 10/04/24 11:51 Steele # (Auto) 0.7 10^3/uL (0.2-0.9) 10/04/24 11:51 Eos # (Auto) 0.3 10^3/uL (0.0-0.8) 10/04/24 11:51 Baso # (Auto) 0.1 10^3/uL (0.0-0.1) 10/04/24 11:51 Nucleated RBC % (auto) 0 % 10/04/24 11:51 Nucleated RBCs # 0.0 /100WBC 10/04/24 11:51 PT 13.10 SECONDS (12.1-14.9) 10/04/24 11:51 INR 0.92 (0.8-1.2) 10/04/24 11:51 APTT 31.0 SECONDS (23.9-36.7) 10/04/24 11:51 Sodium 136 mmol/L (136-145) 10/04/24 11:51 Potassium 4.0 mmol/L (3.5-5.1) 10/04/24 11:51 Chloride 99 mmol/L (98-107) 10/04/24 11:51 Carbon Dioxide 23 mmol/L (22-29) 10/04/24 11:51 Anion Gap 18.0 (5-19) 10/04/24 11:51 BUN 22 mg/dL (8-23) 10/04/24 11:51 Creatinine 1.6 mg/dL (0.7-1.2) H 10/04/24 11:51 GFR Calculation Not Reportable 10/04/24 11:51 Glucose 132 mg/dL (65-115) H 10/04/24 11:51 POC Glucose 146 mg/dL (70-110) H 10/04/24 11:36 Calculated Osmolality 287 mOsm/kg (285-295) 10/04/24 11:51 Calcium 10.2 mg/dL (8.5-10.5) 10/04/24 11:51 Total Bilirubin 0.2 mg/dL (0.15-1.2) 10/04/24 11:51 AST 11 U/L (0-40) 10/04/24 11:51 ALT 9 U/L (0-41) 10/04/24 11:51 Alkaline Phosphatase 94 U/L (40-130) 10/04/24 11:51 Troponin T Hi Sens 6Hr 13.04 ng/L (0-15) 10/04/24 00:20 Troponin T Hi Sens 6Hr Delta -0.96 ng/L (0-12) L 10/04/24 00:20 Total Protein 7.5 g/dL (6.6-8.7) 10/04/24 11:51 Albumin 4.3 g/dL (3.5-5.2) 10/04/24 11:51 Globulin 3.2 g/dL (1.3-4.6) 10/04/24 11:51 All radiology interpretation(s) finalized by discharge EKG Data EKG 1: Interpretation: EKG 10/04/2024 11:35 AM shows a sinus bradycardia with a rate of 54 NE interval of 201 and QTc of 393. No acute ST changes noted no ST elevation or depression. Right bundle branch block noted there are Q waves in V1 and 2. Compared to EKG 08/27/2023 right bundle branch block is new. Discharge Plan Discharge Patient Disposition: Admitted As Inpatient Admit Provider: Anastasia Cummings Clinical Impression: GODFREY (acute kidney injury), Pre-syncope, Ventricular tachycardia Condition: Stable Discharge Diet: Advance as tolerated Discharge Activity: Resume usual activity Coding Level of Care Code ED Golf Course Assistant for Yolig Rea NIH stroke score NIHSS Level Of Consciousness - 1a: 0 Level Of Consciousness Questions - 1b: Both Correct Level Of Consciousness Commands - 1c: Both Correct Best Gaze - 2: Normal Visual Escoto - 3: No Visual Loss Facial Palsy - 4: Normal Motor Arm Right - 5: No Drift Motor Arm Left - 5: No Drift Motor Leg Right - 6: No Drift Motor Leg Left - 6: No Drift Limb Ataxia - 7: Absent Sensory - 8: Normal Best Language - 9: No Aphasia Dysarthia - 10: Normal Extinction And Inattention - 11: 0 Score Total Score: 0
--- OUTSIDE RECORDS SUMMARY | 2024-10-04 11:46 | XMS_ITS | Clinical Summary ---
Author Organization [facility] Address [address] [address] Phone Care Team Providers Care Materials Handling Equipment Operator Name Role Phone Jean-Pierre Henao MD Primary Care Provider [phone] Medications omeprazole (PRILOSEC) 20 mg Oral CpDR Take 20 mg by mouth daily. Active HYDROcodone-nic taminophen (NORCO) 7.5-325 mg Oral Tab Take 1 Tab by mouth every 4 hours as needed. Active cyclobenzaprine (FLEXERIL) 10 mg Oral tablet Take 10 mg by mouth 3 times daily as needed. Active albuterol (PROVENTIL,VENT MIKE) 0.63 mg/3 mL Inhalation Nebu Take 0.63 mg by inhalation one time only. Active simvastatin (ZOCOR) 40 mg Oral tablet Take 40 mg by mouth Daily LATE. Active fluticasone (FLONASE) 50 mcg/spray Both Nostril SpSn Administer 2 Sprays in each nostril daily. Active Active Problems Problem Noted Date Diagnosed Date Pancreatitis, acute 02/08/2012 Sepsis, unspecified 01/30/2012 Meningitis, bacterial 01/30/2012 Overview (01/30/2012): Gram + cocci on gram stain of spinal fluid Metabolic encephalopathy 01/30/2012 Hypertension 01/30/2012 Hypoxia 01/30/2012 COPD (chronic obstructive pulmonary disease) Prolonged Q-T interval on ECG 01/30/2012 Hyponatremia 01/30/2012 Elevated alkaline phosphatase level 01/30/2012 Abnormal TSH 01/30/2012 Acute respiratory failure 01/30/2012 Pneumonia 01/30/2012 Social History Tobacco Use Types Packs/Day Years Used Date Smoking Tobacco: Never Assessed Sex and Gender Information Value Date Recorded Sex Assigned at Not on file 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 Gender Identity Not on file Sexual Orientation Not on file Last Filed Vital Signs Vital Sign Reading Time Taken Comments Blood Pressure 106/68 02/12/2012 7:57 AM HOUSE BUILDER Pulse 108 02/12/2012 7:57 AM HOUSE BUILDER Temperature 36.1 C (97 F) 02/12/2012 7:57 AM HOUSE BUILDER Respiratory Rate 18 02/12/2012 7:57 AM HOUSE BUILDER Oxygen Saturation 100% 02/12/2012 7:57 AM HOUSE BUILDER Inhaled Oxygen Concentration - - Weight 73.3 kg (161 lb 8 oz) 02/07/2012 5:19 AM HOUSE BUILDER Height 177.8 cm (5' 10 ) 02/07/2012 5:19 AM HOUSE BUILDER Body Mass Index 23.17 02/07/2012 5:19 AM HOUSE BUILDER Plan of Treatment Health Maintenance Due Date Last Done Comments DTAP/TDAP/TD VACCINES (1 - Tdap) 01/05/1967 PNEUMOCOCCAL VACCINE 50+ YEARS (1 of 2 - PCV) 01/05/19 67 ZOSTER VACCINE (1 of 2) 01/05/1998 RSV VACCINE (60+ or ) (1 - 1-dose 75+ series) 01/05/2023 INFLUENZA VACCINE (#1) [address] [place] [address] [place] [address] VISN [employer] CON[employer]ATED FEE UNIT Advance Directives For more information, please contact: [phone] * Full Code (Latest Code Status on File) Date Activated Date Inactivated Comments 01/30/2012 3:25 AM 02/12/2012 1:16 PM Care Teams Materials Handling Equipment Operator Relationship Specialty Start Date End Date Jean-Pierre Henao MD [address] [place] [id number] PCP - General Internal Medicine 05/21/11
--- OUTSIDE RECORDS SUMMARY | 2024-10-04 11:46 | XMS_ITS | Clinical Summary ---
Author Organization [facility] Address [address] [facility] Attn: Epic Prelude ADT IDALIA TORRES [address] Care Team Providers Care Science Consultant Name Role Phone Jean-Pierre Henao MD Primary Care Provider [phone]- [phone] Active Problems Problem Noted Date Diagnosed Date Pancreatitis, acute 02/08/2012 Sepsis, unspecified 01/30/2012 Meningitis, bacterial 01/30/2012 Overview (07/13/2020): Gram + cocci on gram stain of spinal fluid Hypoxia 01/30/2012 Hyponatremia 01/30/2012 Metabolic encephalopathy 01/30/2012 COPD (chronic obstructive pulmonary disease) Elevated alkaline phosphatase level 01/30/2012 Hypertension 01/30/2012 Prolonged Q-T interval on ECG 01/30/2012 Abnormal TSH 01/30/2012 Acute respiratory failure 01/30/2012 Pneumonia 01/30/2012 Social History Tobacco Use Types Packs/Day Years Used Date Smoking Tobacco: Never Assessed Sex and Gender Information Value Date Recorded Sex Assigned at Not on file 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
--- OUTSIDE RECORDS SUMMARY | 2024-10-04 11:47 | XMS_ITS | Data Portability ---
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 Lab None record ed. Referral None record ed. Procedures None record ed. Surgeries None record ed. Imaging None record ed. Medication Orders None record ed. Patient TargetsNo targets recorded. Patient Instructions Encounter Date Encounter Id Patient Instructions Last Modified By Organization Details Last Modified Time 05/15/2022 [id number] osteoarthritis: care instructions [email or web address] Not available 05/15/2022 10:38:18 Reason for Referral None Reported. Problems Name Problem SNOMED Code Status Onset Date Resolution Date Notes Provider Name and Address Organization Details Recorded Time Diabetes mellitus 95038128 Active 2022 YO Macias null, [address] 3 09:53:11 Hypertensive disorder 61957576 [facility] [place] 3 09:53:16 Vitamin D deficiency 38638390 Active 2022 [facility] null[facility] [place] 3 09:53:27 Problem Notes None recorded. Medical Equipment None Reported. Allergies No known drug allergies Medications Name Sig Start Date Stop Date Status Note LastModified by Organization Details LastModified Time methocarbamo l 500 mg tablet Take 2 tablets as needed by oral route. active Not Available Not Available No t Available lisinopril 20 mg-hydrochlo rothiazide 12.5 mg tablet Take 1 tablet every day by oral route. 05/15 completed Not Available Not Available Not Available pravastatin 40 mg tablet Take 1 tablet every day by oral route. active Not Available Not Available No t Available hydrocodone 7.5 mg-acetamino phen 325 mg tablet Take 1 tablet twice a day by oral route. active Not Available Not Available No t Available omeprazole 20 mg capsule,linda yed release Take 1 capsule every day by oral route. active Not Available Not Available No t Available glipizide 5 mg tablet Take 1 tablet twice a day by oral route. active Not Available Not Available No t Available metformin ER 1,000 mg tablet,exten ded release 24 hr Take 1 tablet twice a day by oral route. active Not Available Not Available No t Available cholecalcife rol (vit D3) 1,000 unit-vitamin K2 (MK4) 100 mcg tablet Take 3 tablets every day by oral route. active Not Available Not Available No t Available Vitals Date Recorded Body weight Body mass index (BMI) Body height Respiratory rate Heart rate Systolic And Diastolic Provider Name and Address Organization Details Last Updated DateTime 3 34886.1 1 g 27.3 kg/m2 167.64 cm 20 /min 65 /min 130/67 mm[Hg] YO Macias [place] - [facility] [place] 3 09:57:08 Social History Question Answer Notes LastModified by [employer] Details LastModified Time Tobacco Smoking Status Former Smoker quit in 1973 YO Macias [facility], [place] - [facility] [place] 05/15/2022 09:55:34 What Is Your Level Of Caffeine Consumption? Moderate Information not available 05/15/2022 Which Illicit Or Recreational Drugs Have You Used? Marijuanna Information not available 05/15/2022 Has Tobacco Cessation Counseling Been Provided? No Information not available 05/15/2022 Have You Used IV Drugs? No Information not available 05/15/2022 Sex: Unknown Functional Status Question Answer Note LastModified by Organizat ion Details LastModified Time Do you use any illicit or recreational drugs? Yes Information not available 05/15/2022 Do you or have you ever used any other forms of tobacco or nicotine? No Information not available 05/15/2022 What is your level of alcohol consumption? None Information not available 05/15/2022 Mental Status None recorded. Family History Relationship Description Onset Age of this Age Resolved Age Notes LastModified by Organization Details LastModified Time Father No current problems or disability Not available 03/2022 09:56:08 Mother No current problems or disability Not available 03/2022 09:56:08 Medical History Condition Response ARTHRITIS Y HEADACHES N RHEUMATIC FEVER N USE OF BLOOD THINNERS N STROKE N HIGH CHOLESTEROL N DIABETES Y PATIENT DENIES SIGNIFICANT PAST MEDICAL HISTORY N ASTHMA N HEPATITIS / LIVER DISEASE N PULMONARY DISEASE N SEIZURES N BACK / NECK PROBLEMS N HAVE YOU BEEN HOSPITALIZED OR SEEN IN [facility] ER IN THE PAST YEAR ? N HERPES N THYROID DISEASE N ANEMIA N DIZZINESS Y GERD / HEARTBURN / REFLUX N HYPERTENSION Y HIV / AIDS N ANEMIA/BLOOD DISORDER N ANEURYSM N PULMONARY EMBOLISM N OSTEOPOROSIS N HEART DISEASE N CANCER N Past Encounters Encounter ID Performer Location Encounter Start Date Encounter Closed Date Diagnosis/Indication Diagnosis SNOMED-CT Code Diagnosis ICD10 Code Diagnosis Note [id number] JOSE Gant MD [facility] [address] [place] [address] 05/15/2022 09:19:57 05/15/2022 10:41:14 Osteoarthrosis of the carpometacarpal joint of the thumb 97421416 M18.11 Long-term drug therapy 098863960 Z79.899 Health Concerns Section Related Observation LastModified by Organization Detai ls LastModified Time None Recorded Concern Status LastModified by Organization Details LastModified Time None Recorded Advance Directives Directive None Recorded Payers Insurance Date Sequence Insurance Name Policy Number Policy Avitia Covered Member ID Avitia Member ID Guarantor Name 05/17/2022 [facility] Mehdi Muir [id number] Mehdi Muir Notes Date Note Type Note Provider Name and Address Organization Details Recorded Time 05/15/2022 text/html 72-year-old with history of hypertension diabetes vitamin-D deficiency under the care of primary and chronic pain he is in pain management and under the cream care of primary he has been smoking marijuana since age 12,, and he is on hydrocodone 10 mg / 750 Tylenol 6 times a day for some time but because he was smoking marijuana the primary physician has decreased to 7.5 mg/ 325 3 times a day and apparently he is not happy and he is here for pain medication and I have discussed with him extensively in regards to we do not administer pain medication in addition to what he is already on and if he is smoking marijuana probably he needs to be in pain management. He mentions that he is already in Pain Management and I have mentioned to him that he should continue with pain management. He complains of joint pain from top to bottom head to toe. JOSE SEGUNDO MD [address] [place], [address], [place] - [facility] [place] 05/15/2022 10:40:20
[2024-10-04 11:58] LABS: Hematocrit 35.3 % (37-53); Hemoglobin 11.00 g/dL (11.27-16.99); Mean Corpuscular HGB Conc 31.2 g/dL (30-55); Mean Corpuscular Hemoglobin 26.8 pg (27-33); Mean Corpuscular Volume 86.1 fl (82-101); Nucleated Red Blood Cells % 0 %; Platelet Count 382 10^3/cmm (157-399); Red Blood Count 4.10 10^6/uL (3.85-5.65); White Blood Count 7.92 10^3/uL (3.29-11.43)
[2024-10-04 12:09] LABS: INR 0.92 (0.8-1.2); Prothrombin Time 13.10 SECONDS (12.1-14.9)
[2024-10-04 12:10] LABS: Partial Thromboplastin Time 31.0 SECONDS (23.9-36.7)
[2024-10-04 12:15] LABS: Alanine Aminotransferase 9 U/L (0-41); Albumin Level 4.3 g/dL (3.5-5.2); Alkaline Phosphatase 94 U/L (40-130); Anion Gap 18.0 (5-19); Aspartate Amino Transferase 11 U/L (0-40); Blood Urea Nitrogen 22 mg/dL (8-23); Calcium 10.2 mg/dL (8.5-10.5); Carbon Dioxide 23 mmol/L (22-29); Chloride 99 mmol/L (98-107); Creatinine Clr Calc Pharmacy 39.0682; Globulin 3.2 g/dL (1.3-4.6); Glucose 132 mg/dL (65-115); Osmolality Calculated 287 mOsm/kg (285-295); Potassium 4.0 mmol/L (3.5-5.1); Sodium 136 mmol/L (136-145); Total Protein 7.5 g/dL (6.6-8.7)
--- NOTE | 2024-10-04 12:25 | XRR_ITS ---
PROCEDURE INFORMATION: Exam: XR Chest Exam date and time: 10/04/2024 12:41 PM Age: 74 years old Clinical indication: Other: Dizzy; Additional info: Near syncope TECHNIQUE: Imaging protocol: Radiologic exam of the chest. Views: 1 view. COMPARISON: CR XR chest 1V portable [id number] 08/27/2023 5:06 PM FINDINGS: Lungs: No focal consolidation. Mild bibasilar streaky opacities. Pleural spaces: No pleural effusion. No pneumothorax. Heart/Mediastinum: Heart size at the upper limits of normal. Bones/joints: Acute abnormality XR/XR chest 1V portable [id number] IMPRESSION: 1. No acute pulmonary process. 2. Mild bibasilar streaky opacities, possibly atelectasis or scarring.
[2024-10-04] MEDS: amiodarone 150 MG/100 ML PREMIX 400 MG IV (12:52)
--- NOTE | 2024-10-04 13:07 | PC.PHAR ---
Pt is HELENE. Faxing for a med list 10/04/24 12:27pm
--- NOTE | 2024-10-04 13:48 | PC.PHAR ---
Pt states he takes Hydrocodone 10-325 1q6h prn pain. Unable to locate
--- NOTE | 2024-10-04 17:05 | USCV_ITS ---
Mehdi Muir Age: 74 Gender: M : 1950 Exam Date: 10/04/2024 18:37 Ordering Phys: Sheri Chin Technologist: NATALY [place] [facility] [place]: near syncope BP: 128 / 66 HR: 64 Rhythm: Sinus Technical Quality: Adequate MEASUREMENTS (Male / Female) Normal Values 2D ECHO LV Diastolic Diameter PLAX 4.3 cm 4.2 - 5.9 / 3.9 - 5.3 cm IVS Diastolic Thickness 1.1 cm 0.6 - 1.0 / 0.6 - 0.9 cm IVS Systolic Thickness 1.8 cm LVPW Diastolic Thickness 1.1 cm 0.6 - 1.0 / 0.6 - 0.9 cm LVPW Systolic Thickness 2.0 cm LVOT Diameter 2.1 cm LV Ejection Fraction 2D Teich 60.2 % LV Ejection Fraction MOD 4C 66.7 % LV Ejection Fraction MOD 2C 70.5 % LV Ejection Fraction 2C AL 74.5 % LA Diameter 2.9 cm Aorta at Sinotubular Diameter 2.7 cm M-MODE LA Ao Ratio MM 0.8 AV Cusp Separation MM 1.4 cm DOPPLER AV Peak Velocity 141.0 cm/s LVOT Peak Velocity 116.0 cm/s AV Area Cont Eq vti 3.3 cm squared AV Area Cont Eq pk 2.9 cm squared MV Peak Velocity 68.0 cm/s MV Area PHT 3.4 cm squared Mitral E to A Ratio 1.2 TV Peak E Velocity 39.0 cm/s PV Peak Velocity 139.0 cm/s FINDINGS Left Ventricle Left ventricle is normal in size. LV systolic function is normal with EF of 60 to 65%. No regional wall motion abnormalities are seen. Right Ventricle Normal in size and function Right Atrium Normal in size Left Atrium Normal in size Mitral Valve Structurally normal mitral valve. Mild mitral regurgitation. Aortic Valve Structurally normal aortic valve. No significant stenosis. Tricuspid Valve Insufficient TR jet to evaluate RVSP. Pulmonic Valve Not well visualized Pericardium Normal Aorta Normal in size IVC Appears to be normal CONCLUSIONS LV systolic function is normal with EF of 60-65%. Mild mitral regurgitation. No comparison studies are available. Tremayne Awan MD (Electronically Signed) Final Date: 05 October 2024 08:59 S
--- NOTE | 2024-10-04 17:07 | P.CONIM_ITS ---
<Statement entered by Clark Smith MD - 10/04/24 21:24> Patient was evaluated and cared for in conjunction with an advanced practice practitioner. I personally examined the patient and reviewed the chart and all pertinent data including imaging, telemetry, and laboratory results. I discussed the patient in detail with the advanced practice practitioner. Please see their note for complete H&P testing result and agreed upon plan of care for the patient. 74-year-old male history as below presented with presyncope and wide-complex tachycardia GENERAL: Patient is alert, awake and oriented x3. HEART: Regular S1 and S2. No murmur, rub or gallop. LUNGS: Clear to auscultate bilaterally. CENTRAL NERVOUS SYSTEM: Grossly nonfocal. EXTREMITIES: Lower extremities with out edema bilaterally. Assessment and plan Wide-complex tachycardia Near syncope Acute on chronic kidney disease Shortness of breath At this point there is no clear-cut evidence of ventricular tachycardia, strip from ER could be sinus tachycardia versus with aberrant conduction. Patient on amiodarone now patient is bradycardic. I will discontinue IV amiodarone I will start patient on IV fluid 100 mL/h I will ask for echocardiogram to assess LV function any wall motion abnormality Plan for nuclear treadmill stress test in the morning Keep electrolyte in balance Providers/Reason For Consult 2 Consulting Physician/Specialty*: Dr Lemuel Smith, cardiology Reason for Consult*: near syncope Requesting Physician: Dr Naranjo Attending Physician: Anastasia Cummings MD Primary Care Provider: Dea Schuler MD History of Present Illness History of Present Illness Mehdi Muir is a 74 year old male with no prior cardiac history, history of type 2 diabetes (hemoglobin A1c 4.9% last month). He came to a podiatry visit today, was waiting in the waiting room and became very nauseous and diaphoretic, near syncope. A rapid response was called and he was taken to the emergency room for evaluation. He reports in a recent visit with his primary doctor he was noted to be short of breath with exertion, however patient did not notice it until attention was drawn to it. He denies orthopnea, PND, lower extremity edema, chest pain. He has had night sweats for some time. He has never had any cardiac evaluation, no echocardiogram, coronary angiogram or stress testing. He reports he felt better after the IV medication started, which is amiodarone. He has not felt any irregular or rapid heartbeat. Laboratory testing in the ER showed creatinine 1.6, increased from his baseline of 1.2. EKG in the emergency department shows sinus bradycardia, heart rate 54 bpm with right bundle branch block, left anterior fascicular block, indeterminate age possible septal [place]. Review of Systems 2 Const: Reports: night sweats and diaphoresis; Denies: fever(s), chills, change in weight or fatigue Eyes: Denies: change in vision ENMT: Denies: epistaxis Card: Reports: dyspnea on exertion; Denies: chest pain, palpitations, irregular heart rhythm, edema, syncope, pre- syncope, orthopnea or leg pain with exertion Resp: Denies: dyspnea, productive cough or wheezing GI: Denies: nausea, vomiting, hematemesis, hematochezia or melena : Denies: hematuria Musc: Denies: extremity swelling Alex/Lymph: Denies: easy bruising or easy bleeding Medications/Allergies Home Medications ?Medication ?Instructions ?Recorded ?Confirmed ?Last Taken ?Type meloxicam 7.5 mg tablet 7.5 mg PO DAILY 11/10/1910/04/24 History Articulating Spectrum AFO #1 ea 03/06/22 10/04/24 Unkn own Rx Articulating Spectrum AFO to the #1 ea 09/18/22 Unknown Rx left Diabetic shoes #2 ea 09/29/23 10/04/24 Unkn own Rx albuterol sulfate 90 mcg/actuation 2 puff inhalation Q ID PRN copd 10/04/24 10/04/24 Unknown History aerosol inhaler fluticasone propionate 50 1 spray intranasal DAILY PRN 10/04/24 10/04/24 Unknown History mcg/actuation nasal allergies spray,suspension glipizide 5 mg tablet 5 mg PO BID 10/04/24 5 10/04/24 History ipratropium 0.5 mg-albuterol 3 mg 3 ml inhalation QID PRN copd 10/04/24 10/04/24 Unknown History (2.5 mg base)/3 mL nebulization soln lisinopril 10 1 tab PO DAILY 10/04/2409/1510/04/24 History mg-hydrochlorothiazide 12.5 mg tablet omeprazole 20 mg capsule,delayed 20 mg PO BID 10/04/24 10/04/24 10/04/24 History release pravastatin 40 mg tablet 40 mg PO QPM 10/04/2410/03/24 History pregabalin 150 mg capsule 150 mg PO BID 10/04/2410/0410/04/24 History Allergies Allergy/AdvReac Type Severity Reaction Status Date / Time No Known Allergies Allergy Verified 10/16/23 10:18 Current Medications Generic Name Dose Route Start Last Admin Trade Name Alis PRN Reason Stop Dose Admin Amiodarone HCl/Dextrose 360 mg in 200 mls @ 0 mls/hr 10/04/24 12:45 10/04/24 13:18 Nexterone IV 0.5 mg/min .Q0M IRIS 16.67 mls/hr Protocol Administration Per Protocol PFSH Acute 2 PFSH: Medical History Urgency of urination Diabetes Neuropathy Family History Mother , at age 92 No problems noted. Social History Smoking and tobacco/nicotine status: former use of tobacco/nicotine Alcohol intake: never Substance/Drug Use: never Marital status: Current occupational status: retired Vitals/I&O/Wt Last Vital Signs Temp 96.2 F L 10/04/24 12:57 Pulse 64 10/04/24 16:55 Resp 20 H 10/04/24 16:55 BP 120/80 10/04/24 16:55 Pulse Ox 95 10/04/24 16:55 O2 Del Method Room Air 10/04/24 11:51 10/04/24 10/04/24 10/04/24 06:59 14:59 22:59 Intake Total 100 / 100 Balance 100 / 100 Weight last 48 hrs Weight 169 lb Physical Exam 2 Const: COMMON NORMALS: no acute distress and patient oriented x3 GENERAL APPEARANCE: cooperative and comfortable ORIENTATION/CONSCIOUSNESS: Yes awake, Yes oriented to person, Yes oriented to place and Yes oriented to time Chest: COMMONS NORMALS: normal inspection of the chest and normal palpation of entire chest wall CHEST: Yes Symmetrical chest wall rise Resp: COMMON NORMALS: normal respiratory effort, No retractions, No use of accessory muscles and clear to auscultation bilaterally EFFORT & INSPECTION: Yes symmetric chest movement AUSCULTATION: clear to auscultation bilaterally Cardio: COMMON NORMALS: regular rate, regular rhythm, S1 normal heart sound present, S2 normal heart sound present, No gallops present (Cardio), No clicks present (Cardio), No murmurs present (Cardio) and No rub (Cardio) RATE: r egular rate RHYTHM: regular rhythm HEART SOUNDS: S1 normal heart sound present and S2 normal heart sound present PERIPHERAL PULSES: radial pulses present Extremity: COMMON NORMALS: no pedal edema Neuro: COMMON NORMALS: patient oriented x3 and moves all extremities S ENSORIUM/ORIENTATION: Yes oriented to person, Yes oriented to place and Yes oriented to time Data 10/04/24 11:51 10/04/24 11:51 A&P Assessment and plan 1. Pre-syncope: 2. Diabetes: 3. GODFREY (acute kidney injury): Plan: Amiodarone was administered for possible wide-complex tachycardia/frequent PVCs. He can continue infusion for now. He is comfortable currently without chest pain or shortness of breath, bedside telemetry showing inverted T wave in lead II. A troponin series has not been ordered, will start that now. Echocardiogram ordered. He will likely need stress testing given that he has not had any previous cardiac workup, unless troponin series shows significant elevation. PDMP PDMP Reviewed: Not Reviewed Coding Level of Care Code Acute Code for Chg Fwd Diagnoses Pre-syncope R55 Diabetes E11.9 GODFREY (acute kidney injury) N17.9
--- NOTE | 2024-10-04 17:31 | PC.NURSE ---
Patient transferred from ED to CSU via a bed at 1730. Patient walked from ED bed to CSU bed with Amio drip at 0.5mg.
--- NOTE | 2024-10-04 17:47 | ECG_ITS ---
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 Measurements Intervals [place] Rate: 58 P: 0 CA: 0 QRS: -54 QRSD: 105 T: -4 QT: 381 QTc: 375 Interpretive Statements SINUS BRADYCARDIA WITH PACs LEFT ANTERIOR FASCICULAR BLOCK [QRS AXIS <= -45, QR IN I, RS IN II] Compared to ECG 10/04/2024 11:35:50 Right bundle-branch block no longer present Myocardial infarct finding no longer present Electronically Signed On 10-07-2024 09:06:32 CDT by Tremayne Awan M.D. [id number] [id number]
--- NOTE | 2024-10-04 18:16 | PM.HP ---
Providers/Chief Complaint Admitting Physician: Anastasia Cummings MD Primary Care Provider: Dea Schuler MD Chief Complaint: Dizzy, Rapid Resp History of Present Illness Mehdi Muir is a 74 year old male with medical history significant for diabetes, hyperlipidemia, arthritis and Pez planus of both feet for which he sees podiatry annually aside from this patient does not have much medical problem. Patient was coming to see his podiatry and when he got to the lobby of the hospital patient suddenly started feeling sick like he is ready to throw up. All of a sudden patient got diaphoretic more like a parasympathetic autonomic nervous system display. No shortness of breath no chest pain patient with nausea and then vomited diaphoresis and was then sent to the emergency room instead of continuing with the podiatric appointment. Upon arriving to the emergency room it was noted that patient was in V. tach and it was counted to be 24 beats of V. tach. Once we noted that patient with all the diaphoresis went bradycardic patient had a lot of vagal stimulation. Patient had denied any heart problem never had any chest pain before never having any shortness of breath never had a stress test before did have an echocardiogram couple of years ago only for a research study that he was with a group in [facility] but did not even know the details of this research study. Patient in the emergency room received a bolus of amiodarone 150 mg and then was started on amiodarone drip patient heart rate everything got better within next 20 clofenamide heart rate now in the 80s no arrhythmia. Blood pressure 140/77 pulse 70s to 80s pulse oximetry 98% on 2 L of oxygen but was also in the 90s on room air. Cardiology was consulted because of V. tach. Patient has been on meloxicam along with lisinopril along with glipizide although these will impound on the kidney. Creatinine on presentation was 1.6. Must hold all nephrotoxic medication. Review of Systems Narrative: System review upon 10 organ review were entirely unremarkable except for cardiovascular display at presentation. Medications/Allergies Home Medications ?Medication ?Instructions ?Recorded ?Confirmed ?Last Taken ?Type meloxicam 7.5 mg tablet 7.5 mg PO DAILY 11/10/19 10/04/24 10/04/24 History Articulating Spectrum AFO #1 ea 03/06/22 10/04/24 Unknown Rx Articulating Spectrum AFO to the #1 ea 09/18/22 10/04/24 Unknown Rx left Diabetic shoes #2 ea 09/29/23 10/04/24 Unknown Rx albuterol sulfate 90 mcg/actuation 2 puff inhalation QID PRN copd 10/04/24 10/04/24 Unknown History aerosol inhaler fluticasone propionate 50 1 spray intranasal DAILY PRN 10/04/24 10/04/24 Unknown History mcg/actuation nasal allergies spray,suspension glipizide 5 mg tablet 5 mg PO BID 10/04/24 10/04/24 10/04/24 History ipratropium 0.5 mg-albuterol 3 mg 3 ml inhalation QID PRN copd 10/04/24 10/04/24 Unknown History (2.5 mg base)/3 mL nebulization soln lisinopril 10 1 tab PO DAILY 10/04/24 10/04/24 10/04/24 History mg-hydrochlorothiazide 12.5 mg tablet omeprazole 20 mg capsule,delayed 20 mg PO BID 10/04/24 10/04/24 10/04/24 History release pravastatin 40 mg tablet 40 mg PO QPM 10/04/24 10/04/24 10/03/24 History pregabalin 150 mg capsule 150 mg PO BID 10/04/24 10/04/24 10/04/24 History Allergies Allergy/AdvReac Type Severity Reaction Status Date / Time No Known Allergies Allergy Verified 10/16/23 10:18 PFSH Acute PFSH: Medical History (Updated 10/04/24 @ 19:38 by Anastasia Cummings MD) Urgency of urination Diabetes Neuropathy Family History Mother , at age 92 No problems noted. Social History Smoking and tobacco/nicotine status: former use of tobacco/nicotine Alcohol intake: never Substance/Drug Use: never Marital status: Current occupational status: retired Vitals/I&O/Wt Last Vital Signs Temp 97.5 F L 10/04/24 17:36 Pulse 78 10/04/24 17:39 Resp 20 H 10/04/24 17:36 BP 128/66 10/04/24 17:39 Pulse Ox 98 10/04/24 17:39 O2 Del Method Room Air 10/04/24 17:36 10/04/24 10/04/24 10/04/24 06:59 14:59 22:59 Intake Total 100 / 100 Balance 100 / 100 Weight last 48 hrs Weight 81.647 kg Weight 76.657 kg Physical Exam Narrative: Generally patient is in no apparent distress soon after treatment was delivered patient was relaxing in bed in the ED as I evaluated him and talk to him. HEENT normocephalic atraumatic neck neck is supple cardiovascular heart rate is regular lungs are pretty much clear abdomen soft nontender nondistended unremarkable extremities are intact no edema has good pulses neurology has no focality lab studies lab studies reviewed and noted. Data 10/04/24 11:51 10/04/24 11:51 A&P Assessment and plan 1. Ventricular tachycardia: Antiarrhythmic initiated with amiodarone with a bolus of 150 mg and then a drip started and this arrested the V. tach. Patient had been followed up with cardiology in the setting 2. GODFREY (acute kidney injury): Discontinue all nephrotoxic medication meloxicam, lisinopril at this time with the hydrochlorothiazide, glipizide. Will follow-up with with lab studies in the morning for chemistry for interval change 3. Diabetes: Will discontinue glipizide because of renal failure This renal failure likely due to medications Must continue to monitor and optimize 4. Pre-syncope: Patient had presyncope with bradycardia at the time of V. tach presentation and with associated diaphoresis and nausea and vomiting Cardiology consulted to further evaluate if patient had underlining ischemia causing this but all along with no chest pains no shortness of breath and had never had any history of this. If there is positive finding with him in the setting of diabetes it will not be surprising Cardiology on the case. 5. Pes planus of both feet: Patient has supportive structures mid by orthopedics for the patient ankles to keep the ankle from a flipping inward. Podiatry is taking care of this Plan: GI and DVT prophylaxis in place PDMP PDMP Reviewed: Last Reviewed 10/04/24 19:36 by Anastasia Cummings MD Attestations Medical Necessity Statement*: Patient with V. tach and symptomatic will need at least 2 midnights stay in the hospital qualifying for inpatient care. Coding Level of Care Code Acute Code for Chg Fwd Diagnoses Ventricular tachycardia I47.20 GODFREY (acute kidney injury) N17.9 Diabetes E11.9 Pre-syncope R55 Pes planus of both feet M21.41; M21.42
--- NOTE | 2024-10-04 18:26 | PC.NURSE ---
Emmanuel mantilla stopped at [address] Smith.
[2024-10-04] MEDS: ATORVASTATIN 10 MG TABLET 20 MG PO (18:43)
[2024-10-04 18:48] LABS: Glucose Urine UA Trace (Normal); Nitrate Urine Negative (Negative); Specific Gravity, Urine 1.019 (1.005-1.030)
[2024-10-04 18:53] LABS: Add Urine Microscopic? YES
[2024-10-04 18:55] LABS: PCP Screen Urine Negative (Negative)
--- NOTE | 2024-10-04 19:25 | ECG_ITS ---
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: : 1950 Requested By: Sheri Chin Order Number: [id number] Reading MD: Measurements Intervals [place] Rate: 80 P: 94 ME: 209 QRS: -66 QRSD: 105 T: 46 QT: 361 QTc: 416 Interpretive Statements SINUS RHYTHM WITH OCCASIONAL SUPRAVENTRICULAR PREMATURE COMPLEXES S1-S2-S3 PATTERN, CONSISTENT WITH PULMONARY DISEASE, RVH, OR NORMAL VARIANT INCOMPLETE RIGHT BUNDLE BRANCH BLOCK [90+ ms QRS DURATION, TERMINAL R IN V1/V2, 40+ ms S IN I/aVL/V4/V5/V6] LEFT ANTERIOR FASCICULAR BLOCK [QRS AXIS <= -45, QR IN I, RS IN II] [id number]
[2024-10-04 19:40] LABS: Troponin(5th) Baseline 14 ng/L (0-15)
[2024-10-04 20:33] LABS: Troponin 5 2HR 13.33 ng/L (0-15)
[2024-10-04 20:38] LABS: Troponin 5 2HR Delta -0.67 ABS# (0-10)
[2024-10-04] MEDS: heparin 5,000 unit/mL INJ 1 mL 5000 UNIT SUBCUT (20:40)
--- NOTE | 2024-10-04 23:25 | ECG_ITS ---
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: : 1950 Requested By: Sheri Chin Order Number: [id number] Reading MD: Measurements Intervals [place] Rate: 76 P: 97 ND: 210 QRS: -66 QRSD: 104 T: 49 QT: 364 QTc: 409 Interpretive Statements SINUS RHYTHM WITH FIRST DEGREE AV BLOCK INCOMPLETE RIGHT BUNDLE BRANCH BLOCK [90+ ms QRS DURATION, TERMINAL R IN V1/V2, 40+ ms S IN I/aVL/V4/V5/V6] LEFT ANTERIOR FASCICULAR BLOCK [QRS AXIS <= -45, QR IN I, RS IN II] Compared to ECG 10/04/2024 20:51:25 First degree AV block now present Right ventricular hypertrophy no longer present [id number] [id number]
[2024-10-05] VITALS (7 sets, daily range): BP systolic 120–167; BP diastolic 66–85; PULSE 63–102; RESP 12–21; TEMP 36.8–37.3; O2SAT 95–99
--- NOTE | 2024-10-05 | ECG_ITS ---
[facility] Test Date: 2024-10-05 Pat Name: Mehdi Muir Department: Room: 105 Gender: Male Complaint Operator: : 1950 Requested By: Clark Smith Order Number: [id number] Zainab MD: Interpretive Statements Intraprocedure shortess of breath; Symptoms resoled by discharge [id number]
[2024-10-05 00:26] LABS: Hematocrit 36.5 % (37-53); Hemoglobin 11.60 g/dL (11.27-16.99); Mean Corpuscular HGB Conc 31.8 g/dL (30-55); Mean Corpuscular Hemoglobin 27.4 pg (27-33); Mean Corpuscular Volume 86.1 fl (82-101); Nucleated Red Blood Cells % 0 %; Platelet Count 394 10^3/cmm (157-399); Red Blood Count 4.24 10^6/uL (3.85-5.65); White Blood Count 6.86 10^3/uL (3.29-11.43)
[2024-10-05 00:44] LABS: Troponin 5 6HR 13.04 ng/L (0-15)
[2024-10-05 00:52] LABS: Alanine Aminotransferase 10 U/L (0-41); Albumin Level 4.5 g/dL (3.5-5.2); Alkaline Phosphatase 100 U/L (40-130); Aspartate Amino Transferase 15 U/L (0-40); Blood Urea Nitrogen 22 mg/dL (8-23); Calcium 10.4 mg/dL (8.5-10.5); Carbon Dioxide 23 mmol/L (22-29); Chloride 102 mmol/L (98-107); Creatinine Clr Calc Pharmacy 49.4488; Globulin 2.7 g/dL (1.3-4.6); Glucose 98 mg/dL (65-115); Magnesium 2.5 mg/dL (1.7-2.3); Osmolality Calculated 289 mOsm/kg (285-295); Sodium 138 mmol/L (136-145); Total Protein 7.2 g/dL (6.6-8.7)
[2024-10-05 00:55] LABS: Anion Gap 17.4 (5-19); Potassium 4.4 mmol/L (3.5-5.1)
[2024-10-05 00:57] LABS: Troponin 5 6HR Delta -0.96 ng/L (0-12)
--- NOTE | 2024-10-05 02:41 | ECG_ITS ---
[facility] Test Date: 2024-10-05 Pat Name: Mehdi Muir Department: Room: 105 Gender: Male Java Flex Developer: : 1950 Requested By: July Meng Order Number: [id number] Reading MD: Measurements Intervals [place] Rate: 68 P: 79 [place]: 209 QRS: -60 QRSD: 101 T: 28 QT: 380 QTc: 406 Interpretive Statements SINUS RHYTHM INCOMPLETE RIGHT BUNDLE BRANCH BLOCK [90+ ms QRS DURATION, TERMINAL R IN V1/V2, 40+ ms S IN I/aVL/V4/V5/V6] LEFT ANTERIOR FASCICULAR BLOCK [QRS AXIS <= -45, QR IN I, RS IN II] No previous ECG available for comparison [id number]
[2024-10-05] MEDS: heparin 5,000 unit/mL INJ 1 mL 5000 UNIT SUBCUT (05:22)
--- NOTE | 2024-10-05 07:05 | NMCV_ITS ---
NM tip perf SPECT r/s* [id number] Mehdi Muir Age: 74 Gender: M : 1950 Exam Date: 10/05/2024 07:47 Ordering Phys: Clark Smith MD ([email or web address]) Technologist: CHRISTINA Escobar Exam Location: [facility] Indications: cp STRESS TEST Please see separate stress test report in [facility] for full findings IMAGE PROTOCOL Rest/Stress 1 Exercise Day Radiopharmaceutical Dose (mCi) Administration Site Administered by Rest: Tc-99m 10.5 IV CHRISTINA Escobar Sestamibi Stress:Tc-99m 33 IV Martha Villalobos TAMALE MACHINE FEEDER Sestamibi Rest: 05-Oct-2024 60 Discovery 630 Stress: 05-Oct-2024 15 Discovery 630 Radiopharmaceutical was injected at 93 % maximum heart rate. Images obtained in supine and prone position. SPECT RESULTS Technical Quality: Good Raw Data Analysis: Normal Image Corrections: No attenuation or motion correction applied Summed Stress Score: 0 Summed Rest Score: 1 Summed Difference Score: 0 PERFUSION FINDINGS SPECT images demonstrate homogeneous tracer distribution throughout the myocardium. FUNCTIONAL RESULTS (calculated via Gated SPECT) Stress Image LV EF (%): 67 Stress EDV (mL):75 TID: 0.71 Stress ESV (mL):25 FUNCTIONAL FINDINGS: There is normal left ventricular systolic function. IMPRESSIONS 1. Normal myocardial perfusion imaging with no evidence of ischemia. 2. LV systolic function is normal. Tremayne Awan MD (Electronically Signed) Final Date: 05 October 2024 10:43 S
--- NOTE | 2024-10-05 12:06 | P.PN_ITS ---
<Statement entered by Clark Smith MD - 10/11/24 14:36> Patient was evaluated and cared for in conjunction with an advanced practice practitioner. I personally examined the patient and reviewed the chart and all pertinent data including imaging, telemetry, and laboratory results. I discussed the patient in detail with the advanced practice practitioner. Please see their note for complete H&P testing result and agreed upon plan of care for the patient. Subjective 2 Subjective: No events overnight. No recurrence of arrhythmia. He has not had any chest pain or shortness of breath. Echocardiogram shows LVEF 60 to 65%, mild mitral regurgitation. Lexiscan stress test performed this morning was negative for ischemia. Vitals/I&O/Wt Last Vital Signs Temp 99.2 F 10/05/24 07:55 Pulse 102 H 10/05/24 08:57 Resp 16 10/05/24 07:55 BP 167/74 10/05/24 08:57 Pulse Ox 97 10/05/24 07:55 O2 Del Method Room Air 10/05/24 07:55 10/04/24 10/05/24 10/05/24 22:59 06:59 14:59 Intake Total 85.573 / 7038.952 2751 / 1185.573 480 / 480 Output Total 275 / 275 750 / 750 Balance 85.573 / 910.573 725 / 910.573 -270 / -270 Weight last 48 hrs Weight 177 lb 8 oz Weight 180 lb Weight 169 lb Physical Exam 2 Const: COMMON NORMALS: no acute distress and patient oriented x3 GENERAL APPEARANCE: cooperative and comfortable ORIENTATION/CONSCIOUSNESS: Yes awake, Yes oriented to person, Yes oriented to place and Yes oriented to time Chest: COMMONS NORMALS: normal inspection of the chest and normal palpation of entire chest wall CHEST: Yes Symmetrical chest wall rise Resp: COMMON NORMALS: normal respiratory effort, No retractions, No use of accessory muscles and clear to auscultation bilaterally EFFORT & INSPECTION: Yes symmetric chest movement AUSCULTATION: clear to auscultation bilaterally Cardio: COMMON NORMALS: regular rate, regular rhythm, S1 normal heart sound present, S2 normal heart sound present, No gallops present (Cardio), No clicks present (Cardio), No murmurs present (Cardio) and No rub (Cardio) RATE: r egular rate RHYTHM: regular rhythm HEART SOUNDS: S1 normal heart sound present and S2 normal heart sound present PERIPHERAL PULSES: radial pulses present Extremity: COMMON NORMALS: no pedal edema Neuro: COMMON NORMALS: patient oriented x3 and moves all extremities S ENSORIUM/ORIENTATION: Yes oriented to person, Yes oriented to place and Yes oriented to time Data 10/05/24 00:20 10/05/24 00:20 A&P Assessment and plan 1. Pre-syncope: 2. Diabetes: 3. GODFREY (acute kidney injury): Plan: Ischemic workup is complete. He is felt to have vasovagal syncope and possible SVT with aberrant conduction. For monitoring of possible arrhythmias, would recommend 30-day event monitor. He may discharge home when okay with hospitalist service. PDMP PDMP Reviewed: Not Reviewed Attestations 2 Medical Necessity Statement*: per hospitalist Coding Level of Care Code Acute Code for Chg Fwd Diagnoses Pre-syncope R55 Diabetes E11.9 GODFREY (acute kidney injury) N17.9
--- NOTE | 2024-10-05 13:32 | PM.DCS ---
Discharge Providers Date of Admission: 10/04/24 16:52 Date of Discharge: October 05, 2024 Attending Provider at Admission: Anastasia Cummings MD Attending Provider at Discharge: Anastasia Cummings MD Consults: Cardiology Dr. Smith Primary Care Provider: Dea Schuler MD Diagnoses at Discharge Discharge Diagnosis 1. Pre-syncope: Details from hospital stay: Patient with 24 runs of V. tach did well to sinus rhythm with amiodarone drip and bolus. Patient post stress test with no ischemia cardiology would like patient discharged to follow-up with them and that is with Dr. Smith 2. Diabetes: 3. GODFREY (acute kidney injury): Other Information Additional DC diagnoses/information: Patient came in with 24 runs of V. tach and presyncopal event converted to sinus rhythm off of amiodarone and underwent stress test this morning with negative stress test going home on Holter monitor to follow-up with Dr. Higgins. Reason for Visit Reason for Visit: Dizzy, Rapid Resp Hospital Course Hospital Course Mehdi Muir is a 74 year old male with medical history significant for diabetes, hyperlipidemia, arthritis and Pez planus of both feet for which he sees podiatry annually aside from this patient does not have much medical problem. Patient was coming to see his podiatry and when he got to the lobby of the hospital patient suddenly started feeling sick like he is ready to throw up. All of a sudden patient got diaphoretic more like a parasympathetic autonomic nervous system display. No shortness of breath no chest pain patient with nausea and then vomited diaphoresis and was then sent to the emergency room instead of continuing with the podiatric appointment. Upon arriving to the emergency room it was noted that patient was in V. tach and it was counted to be 24 beats of V. tach. Once we noted that patient with all the diaphoresis went bradycardic patient had a lot of vagal stimulation. Patient had denied any heart problem never had any chest pain before never having any shortness of breath never had a stress test before did have an echocardiogram couple of years ago only for a research study that he was with a group in [facility] but did not even know the details of this research study. Patient in the emergency room received a bolus of amiodarone 150 mg and then was started on amiodarone drip patient heart rate everything got better within next 20 clofenamide heart rate now in the 80s no arrhythmia. Blood pressure 140/77 pulse 70s to 80s pulse oximetry 98% on 2 L of oxygen but was also in the 90s on room air. Cardiology was consulted because of V. tach. Patient has been on meloxicam along with lisinopril along with glipizide although these will impound on the kidney. Creatinine on presentation was 1.6. Must hold all nephrotoxic medication. Patient had done remarkably well no further chest pain V. tach resolved on amiodarone patient at this time had gone for stress test and the stress test is negative. Patient now is going home on an event monitor for 14 days and will follow-up with the cardiology Dr. Smith in 15 days from the day patient puts on the Holter monitor here as of today going home. Physical Exam Narrative: Patient is doing well in no apparent distress HEENT normocephalic atraumatic neck neck is supple cardiovascular heart rate is regular lungs are pretty much clear abdomen soft nontender nondistended unremarkable extremities are intact no edema has good pulses neurology has no focality lab studies lab studies reviewed and noted. Discharge Data Studies Completed and Pending Completed Studies During Hospitalization Category Date Time Status CT head thrombolytic [id number] Stat Cat Scan 10/04/24 11:34 Completed Cardiac Stress Test MIBI [Sestamibi Stress Test Request Exams 10/05/24 07:04 Draft ] Routine XR chest 1V portable [id number] Stat Exams 10/04/24 12:25 Completed NM tip perf SPECT r/s* [id number] Routine Nuc Med 10/05/24 07:05 Completed CV. echo complete* [id number] Routine Ultrasound 10/04/24 17:05 Completed None Radiology Impressions Head CT 10/04/24 11:34 IMPRESSION: 1. No acute intracranial hemorrhage or edema. 2. Mild cerebral and cerebellar atrophy and small vessel disease. Notified Rambo Naranjo DO at 10/04/2024 11:47 AM. Chest X-Ray 10/04/24 12:25 IMPRESSION: 1. No acute pulmonary process. 2. Mild bibasilar streaky opacities, possibly atelectasis or scarring. Laboratory Results WBC 6.86 10^3/uL (3.29-11.43) 10/05/24 00:20 RBC 4.24 10^6/uL (3.85-5.65) 10/05/24 00:20 Hgb 11.60 g/dL (11.27-16.99) 10/05/24 00:20 Hct 36.5 % (37-53) L 10/05/24 00:20 MCV 86.1 fl (82-101) 10/05/24 00:20 MCH 27.4 pg (27-33) 10/05/24 00:20 MCHC 31.8 g/dL (30-55) 10/05/24 00:20 RDW 15.8 % (12.1-15.1) H 10/05/24 00:20 Plt Count 394 10^3/cmm (157-399) 10/05/24 00:20 MPV 8.3 fL (7.4-10.4) 10/05/24 00:20 Neut % (Auto) 44.0 % 10/05/24 00:20 Lymph % (Auto) 41.7 % 10/05/24 00:20 Wood % (Auto) 10.5 % 10/05/24 00:20 Eos % (Auto) 2.8 % 10/05/24 00:20 Baso % (Auto) 0.6 % 10/05/24 00:20 Neut # (Auto) 3.02 10^3/uL (1.8-7.7) 10/05/24 00:20 Lymph # (Auto) 2.9 10^3/uL (0.8-4.8) 10/05/24 00:20 Wood # (Auto) 0.7 10^3/uL (0.2-0.9) 10/05/24 00:20 Eos # (Auto) 0.2 10^3/uL (0.0-0.8) 10/05/24 00:20 Baso # (Auto) 0.0 10^3/uL (0.0-0.1) 10/05/24 00:20 Nucleated RBC % (auto) 0 % 10/05/24 00:20 Nucleated RBCs # 0.0 /100WBC 10/05/24 00:20 PT 13.10 SECONDS (12.1-14.9) 10/04/24 11:51 INR 0.92 (0.8-1.2) 10/04/24 11:51 APTT 31.0 SECONDS (23.9-36.7) 10/04/24 11:51 Sodium 138 mmol/L (136-145) 10/05/24 00:20 Potassium 4.4 mmol/L (3.5-5.1) 10/05/24 00:20 Chloride 102 mmol/L (98-107) 10/05/24 00:20 Carbon Dioxide 23 mmol/L (22-29) 10/05/24 00:20 Anion Gap 17.4 (5-19) 10/05/24 00:20 BUN 22 mg/dL (8-23) 10/05/24 00:20 Creatinine 1.3 mg/dL (0.7-1.2) H 10/05/24 00:20 GFR Calculation Not Reportable 10/05/24 00:20 Glucose 98 mg/dL (65-115) 10/05/24 00:20 POC Glucose 149 mg/dL (70-110) H 10/04/24 17:37 Calculated Osmolality 289 mOsm/kg (285-295) 10/05/24 00:20 Calcium 10.4 mg/dL (8.5-10.5) 10/05/24 00:20 Phosphorus 2.6 mg/dL (2.5-4.5) 10/05/24 00:20 Magnesium 2.5 mg/dL (1.7-2.3) H 10/05/24 00:20 Total Bilirubin 0.2 mg/dL (0.15-1.2) 10/05/24 00:20 AST 15 U/L (0-40) 10/05/24 00:20 ALT 10 U/L (0-41) 10/05/24 00:20 Alkaline Phosphatase 100 U/L (40-130) 10/05/24 00:20 Troponin T Baseline 14 ng/L (0-15) 10/04/24 18:19 Troponin T 120 Minute 13.33 ng/L (0-15) 10/04/24 20:04 Delta Troponin T -0.67 ABS# (0-10) L 10/04/24 20:04 Troponin T Hi Sens 6Hr 13.04 ng/L (0-15) 10/04/24 00:20 Troponin T Hi Sens 6Hr Delta -0.96 ng/L (0-12) L 10/04/24 00:20 Total Protein 7.2 g/dL (6.6-8.7) 10/05/24 00:20 Albumin 4.5 g/dL (3.5-5.2) 10/05/24 00:20 Globulin 2.7 g/dL (1.3-4.6) 10/05/24 00:20 Urine Color Yellow (Yellow) 10/04/24 18:10 Urine Appearance Clear (CLEAR) 10/04/24 18:10 Urine pH 5.0 (5-7) 10/04/24 18:10 Ur Specific [place] 1.019 (1.005-1.030) 10/04/24 18:10 Urine Protein Trace (Negative) A 10/04/24 18:10 Urine Glucose (UA) Trace (Normal) H 10/04/24 18:10 Urine Ketones Negative (Negative) 10/04/24 18:10 Urine Blood Negative (Negative) 10/04/24 18:10 Urine Nitrate Negative (Negative) 10/04/24 18:10 Urine Bilirubin Negative (Negative) 10/04/24 18:10 Urine Urobilinogen 0.2 mg/dL (Negative) 10/04/24 18:10 Ur Leukocyte Esterase Negative (Negative) 10/04/24 18:10 Urine RBC 0-2 /hpf (0-2) 10/04/24 18:10 Urine WBC 0-5 /hpf (0-5) 10/04/24 18:10 Ur Squamous Epith Cells 0-5 /hpf (0-5) 10/04/24 18:10 Amorphous Sediment Not Reportable 10/04/24 18:10 Urine Bacteria None seen /hpf (NONE) 10/04/24 18:10 Hyaline Casts 2.05 /lpf 10/04/24 18:10 Urine Opiates Screen Negative ng/mL (Negative) 10/04/24 18:10 Ur Barbiturates Screen Negative ng/mL (Negative) 10/04/24 18:10 Ur Phencyclidine Scrn Negative ng/mL (Negative) 10/04/24 18:10 Ur Amphetamines Screen Negative ng/mL (Negative) 10/04/24 18:10 U Benzodiazepines Scrn Negative ng/mL (Negative) 10/04/24 18:10 Urine Cocaine Screen Negative ng/mL (Negative) 10/04/24 18:10 U Marijuana (THC) Screen Positive ng/mL (Negative) H 10/04/24 18:10 Vitals Last Vital Signs Temp 98.9 F 10/05/24 12:00 Pulse 89 10/05/24 12:00 Resp 20 H 10/05/24 12:00 BP 132/85 10/05/24 12:00 Pulse Ox 99 10/05/24 12:00 O2 Del Method Room Air 10/05/24 12:00 Discharge Plan Discharge Patient Disposition: Home Condition: Stable Prescriptions: Continued meloxicam 7.5 mg tablet 7.5 mg PO DAILY (DME) Articulating Spectrum AFO See Rx Instructions .Route .MEDSUPPLY Qty: 1 0RF Rx Instructions: As directed by [facility] PATIENT (DME) Articulating Spectrum AFO to the left See Rx Instructions .Route .MEDSUPPLY Qty: 1 0RF Rx Instructions: As directed by &[facility] PATIENT (DME) Diabetic shoes See Rx Instructions .ROUTE .MEDSUPPLY Qty: 2 0RF Rx Instructions: 2 pairs of shoes ipratropium-albuterol 0.5 mg-3 mg(2.5 mg base)/3 mL Solution For Nebulization 3 ml INHALATION QID PRN (Reason: copd) pravastatin 40 mg Tablet 40 mg PO QPM omeprazole 20 mg Capsule,Delayed Release(Dr/Ec) 20 mg PO BID lisinopril-hydrochlorothiazide 10-12.5 mg Tablet 1 tab PO DAILY albuterol sulfate 90 mcg/actuation Hfa Aerosol Inhaler 2 puff INHALATION QID PRN (Reason: copd) fluticasone propionate [Flonase] 50 mcg/actuation Lolo,Suspension 1 spray INTRANASAL DAILY PRN (Reason: allergies) Rx Instructions: administer into each nostril glipizide 5 mg Tablet 5 mg PO BID pregabalin 150 mg Capsule 150 mg PO BID Inventory Assistant OK for DC: Cardiology and Family Medicine Referrals: Dea Schuler MD [Primary Care Provider, Family Practice] - 10/06/24 10:30 am Discharge Diet: Advance as tolerated Discharge Activity: Resume usual activity Patient Instructions: Opioid Safety, Patient Portal & [place] Instructions Discharge Attestations Time Spent in Discharge Care*: less than 30 min Specific Discharge Activities: educating patient, educating and/or supporting family/caregiver and discussing with case loader operator/social workers/dc planners Time Spent in Smoking Cessation: 3 to 10 minutes Quality Metrics Clinical Quality Measures [ No reported AMI, CVA or VTE this stay] Coding Level of Care Code 85504 Diagnoses Pre-syncope R55 Diabetes E11.9 GODFREY (acute kidney injury) N17.9 Time Spent (min) 30
== END 2024-10-05 15:34 | disposition home or self-care (01) | DRG 309 ==
LOC: ER 14:04 → CSU 16:52
PROVIDERS: Nurse Practitioner Family; Admitting Provider Internal Medicine; Emergency Provider Family Medicine; PCP Family Medicine; Visit Provider Internal Medicine
DX: I47.10 Supraventricular tachycardia, unspecified (principal); N17.9 Acute kidney failure, unspecified; R55 Syncope and collapse; E11.22 Type 2 diabetes mellitus with diabetic chronic kidney disease; N18.9 Chronic kidney disease, unspecified; E11.40 Type 2 diabetes mellitus with diabetic neuropathy, unspecified; E78.5 Hyperlipidemia, unspecified; M19.90 Unspecified osteoarthritis, unspecified site; M21.42 Flat foot [pes planus] (acquired), left foot; M21.41 Flat foot [pes planus] (acquired), right foot; Z79.84 Long term (current) use of oral hypoglycemic drugs; I45.10 Unspecified right bundle-branch block; I44.4 Left anterior fascicular block; Z87.891 Personal history of nicotine dependence; I49.3 Ventricular premature depolarization
CPT/HCPCS: 36415; 36416; 70450; 71045; 78452; 80053; 80306; 81001; 82962; 83735; 84100; 84484; 85025; 85610; 85730; 93005; 93017; 93306; 96365; 96372; 96375; 99285; A4222; A9270; A9500; J0283; J1644; J7030; J9999

== ENCOUNTER → 2024-10-20 12:43 | Outpatient (BNVA) | payer OTHER, SELFPAY | PROVIDERS: PCP Family Medicine; Visit Provider Podiatrist Foot & Ankle Surgery | DX: E11.8 Type 2 diabetes mellitus with unspecified complications (principal); M76.821 Posterior tibial tendinitis, right leg; M76.822 Posterior tibial tendinitis, left leg; E11.42 Type 2 diabetes mellitus with diabetic polyneuropathy; M19.079 Primary osteoarthritis, unspecified ankle and foot; M21.41 Flat foot [pes planus] (acquired), right foot; M21.42 Flat foot [pes planus] (acquired), left foot; M25.371 Other instability, right ankle | CPT/HCPCS: 99213 ==

== ENCOUNTER → 2024-11-01 12:42 | Outpatient (BNVA) | payer OTHER, SELFPAY | PROVIDERS: PCP Family Medicine; Visit Provider Nurse Practitioner Family | DX: R00.0 Tachycardia, unspecified (principal); F17.200 Nicotine dependence, unspecified, uncomplicated | CPT/HCPCS: 99213 ==